=== PATIENT | female | born 1995 | race Caucasian/White ===

== ENCOUNTER 2022-06-05 10:56 | Inpatient (IN) ==
[2022-06-05] MEDS ORDERED: OXYTOCIN 30 UNITS/500 ML BAG IV PRN ×2 (11:23)
[2022-06-05] MEDS ORDERED: LIDOCAINE 1% LOCAL 20 ML VIAL INFIL PRN (11:23)
--- NOTE | 2022-06-05 11:43 | History & Physical Report ---
Date of Service June 05, 2022 Assessment & Plan (1) Supervision of normal intrauterine in primigravida: Plan: - Plan for induction of labor for post dates with Pitocin; epidural as desired (2) Post-dates : Admission and Anticipated Discharge Date Admission Date: June 05, 2022 History of Present Illness Primary Care Provider: NO PCP Neva is a 26 y/o female currently at 40 2/7 WGA with an MIRIAM 06/03/2022 as determined by Ultrasound who is here for induction. Had a Rodriguez bulb placed last evening which came out prior to her leaving the hospital. irregular contractions; + movement; no fluid loss; no bloody show External FHT and external uterine monitors used; Category 1 tracing; moderate FHT variability. Had regular appointments with OB. OB Labs: Blood Type A Negative 10/19/21 Antibody Screen NEGATIVE 03/15/22 Hemoglobin 11.2 g/dl (12.0-16.0) L 03/15/22 Hematocrit 33.9 % (34.1-44.9) L 03/15/22 Mean Corpuscular Volume 80.2 fL (80-100) 10/19/21 Platelet Count 345 K/uL (130-400) 10/19/21 Rubella IgG Antibody Immune (Immune) 10/19/21 Rapid Plasma Reagin Nonreactive (Nonreactive) 10/19/21 Hepatitis B Surface Antigen. NON-REACTIVE (NON-REACTIVE) 10/19/21 Hepatitis C Antibody (EIA) NON-REACTIVE (NON-REACTIVE) 10/19/21 HIV (1&2) Ag and Ab Confirmation NON-REACTIVE (NON-REACTIVE) 10/19/21 Glucose 1 Hour 50 gm Load 114 mg/dl (70-130) 03/15/22 OB Optional Labs: Chlamydia trachomatis RNA NOT DETECTED (NOT DETECTED) 10/19/21 Neisseria gonorrhoeae RNA NOT DETECTED (NOT DETECTED) 10/19/21 declines afp--akh low risk panorama +CF carrier--fob negative sma neg GBS- Allergies Allergy/AdvReac Type Severity Reaction Status Date / Time No Known Allergies Allergy Verified 06/04/22 19:25 Home Medications Medication Instructions Recorded Confirmed Type prenat.vits,hitesh,cgl-kfpz-ycocv 1 tab PO DAILY 04/16/21 06/05/22 History Patient History Medical History Chicken pox Encounter for supervision of normal intrauterine in primigravida, antepartum Surgical History [place] teeth extracted Family History Grandfather Diabetes Mother Diabetes Hypertension Father Heart disease Denies family history of Ovarian cancer Breast cancer Colorectal cancer Uterine cancer Stroke Social History Smoking Status: Never smoker Hx Alcohol Use: No Hx Substance Use: No Preferred Language: Colombian Communication Ability: Effective Hearing Ability: Normal Plumber Apprentice Required: No Beliefs That Will Affect Care: None marital status: marital status details: Elton Winston (27) [phone] Current Living Situation: Spouse Current Living Situation Comment: lives with spouse and 3 dogs, 1 cat, spouse to change litter. current occupational status: employed current occupation: [employer] Other Information That Helps Us Care for You: No Feels Safe at Home: Yes Safety Concerns: Feels Safe At This Time Gender Identity: Female Assistive Devices: Contacts OB History LMP: 08/22/21 : 2 Full term: 0 Premature: 0 Total Number of Induced Abortions: 0 Total Number of Spontaneous Abortions: 1 Ectopics: 0 Multiple births: 0 Number of Living Children: 0 Review of Systems Denies fever, chills, sweats Denies shortness of breath, difficulty breathing, chest pain, palpitations, chest pressure. Denies breast pain. Denies dysuria. Denies headache or changes in vision. Physical Exam Physical Exam: General: Alert, oriented. No acute distress. Cardiac: Regular rate and rhythm, no murmurs/rubs/gallops. Respiratory: Clear to auscultation bilaterally a/p, no wheezes/rales/rhonchi. No increased work of breathing. Symmetrical chest rise. No respiratory distress. Abdomen: Gravid Pelvic: Dilation 2 cm; Effacement 50% ; Station -[address] Mauro Lower Extremities: No lower extremity edema or swelling. No deep calf pain. Results & Data ([facility]) Vital Signs (Past 12 Hours) Vital Signs Temp Pulse Resp BP 02/08/23 11:06 36.8 C 86 20 133/86 Resident Activity Tracking Resident Involvement: Resident Care Provided Care Provided: OB Delivery
[2022-06-05] MEDS: LACTATED RINGER'S 1,000 ML IV PRN ×3 (11:49→18:55)
[2022-06-05 12:02] LABS: Hematocrit (blood only) 33.3 % (37.0-47.0); Hemoglobin 10.9 g/dl (12.0-16.0); Mean Corpuscular Hemoglobin 25.1 pg (25.0-34.0); Mean Corpuscular Hgb Conc 32.7 g/dL (32.0-36.0); Mean Corpuscular Volume 76.7 fL (80.0-100.0); Mean Platelet Volume 10.5 fL (9.4-12.4); Platelet Count 258 K/uL (130-400); Red Blood Count 4.34 M/uL (4.20-5.40); White Blood Count 9.66 K/ul (4.8-10.8)
[2022-06-05] MEDS ORDERED: ePHEDrine sulfate 50 MG/ML AMP ONE (17:27)
[2022-06-05] MEDS ORDERED: BUPIVACAINE 0.25% 30 ML VIAL ONE (17:28)
[2022-06-05] MEDS ORDERED: LIDOCAINE 2%/EPINEPHRINE 1:200,000 20 ML SDV ONE (17:28)
[2022-06-05] MEDS ORDERED: fentaNYL citrate 100 MCG/2 ML VIAL ONE (17:28)
[2022-06-05] MEDS ORDERED: SODIUM CHLORIDE 0.9% INJ 10 ML VIAL ONE (17:28)
[2022-06-05] MEDS ORDERED: fentaNYL 2MCG/ML ROPIVACAINE 1.25MG/ML 100 ML BAG EPI ONE (17:29)
[2022-06-05] MEDS ORDERED: PROMETHAZINE HCL 6.25 MG in SODIUM CHLORIDE 0.9% 50 ML IV PRN (18:05)
[2022-06-05] MEDS ORDERED: ePHEDrine sulfate 50 MG/ML AMP IV PRN (18:05)
[2022-06-05] MEDS ORDERED: ONDANSETRON INJ 2 MG/ML 2 ML VIAL IV PRN (18:05)
[2022-06-05] MEDS ORDERED: diphenhydrAMINE 50 MG/ML VIAL IV PRN (18:05)
[2022-06-05] MEDS ORDERED: NALBUPHINE HCL INJ 10 MG/ML AMP IV PRN (18:05)
[2022-06-05] MEDS ORDERED: NALOXONE HCL 1 MG in SODIUM CHLORIDE 0.9% 1000ML 1,000 ML IV PRN (18:05)
[2022-06-05] MEDS ORDERED: NALOXONE HCL 0.4 MG/1 ML VIAL/CARP IV PRN (18:05)
--- NOTE | 2022-06-05 18:30 | Anesthesiology Consultation ---
Date of Service June 05, 2022 Assessment & Plan Chart Review Chart Review: Patient NOT seen in Pre Admission Testing and Acceptable Risk for Labor Epidural Consults Requested none ASA ASA2 Proposed Anesthesia Anesthesia Type: Labor Epidural Risk / Benefits Reviewed With: PT / POA / Parent / Guardian, Accepts Plan and Informed Consent Obtained History Height/Weight Height: 5 ft 6 in Weight: 105.143 kg Allergies Allergy/AdvReac Type Severity Reaction Status Date / Time No Known Allergies Allergy Verified 06/04/22 19:25 Medications Home Medications Medication Instructions Recorded Confirmed Last Taken prenat.vits,hitesh,uky-eroo-uykns 1 tab PO DAILY 04/16/21 06/05/22 06/04/22 Active Medications Generic Name Dose Route Start Last Admin Trade Name Freq PRN Reason Stop Dose Admin Oxytocin 30 units in 500 mls @ 13 mls/hr 06/05/22 11:23 06/05/22 16:45 Pitocin IV 06/07/22 11:22 0.78 units/hr .Q24H PRN 13 mls/hr Labor Induction/Augmentation Titration Protocol 0.78 UNITS/HR Lactated Ringer's 1,000 mls @ 125 mls/hr 06/05/22 11:23 06/05/22 17:35 Lr IV 06/07/22 11:22 999 mls/hr .Q8H PRN Administration L&D Protocol Protocol Past Medical History Medical History Chicken pox Encounter for supervision of normal intrauterine in primigravida, antepartum Exercise / Class Metabolic Activity II 4-5 Yardwork/Stairs/Walk up hill Past Family History Family History Grandfather Diabetes Mother Diabetes Hypertension Father Heart disease Denies family history of Ovarian cancer Breast cancer Colorectal cancer Uterine cancer Stroke Past Surgical History Surgical History [place] teeth extracted Past Anesthesia History No Hx of Anesthesia Complications and No Family Hx of Anesthesia Complications History of PONV No Hx of PONV and No Hx of Motion Sickness Social History Smoking Status: Never smoker Hx Alcohol Use: No Hx Substance Use: No substance use type: does not use Physical Exam Vital Signs Last Vital Signs Temp 36.9 C 06/05/22 17:54 Pulse 89 06/05/22 18:28 Resp 20 06/05/22 17:54 BP 139/80 06/05/22 18:28 Pulse Ox 100 06/05/22 18:26 ENMT Mouth: no dentition abnormality Thyromental Distance: > or= 3.5 Finger Breadths Mallampati Class: II Neck normal visual inspection Respiratory normal respiratory effort Auscultation: lungs clear to auscultation bilaterally Cardiovascular Rate/Rhythm: regular rate and regular rhythm Psychiatric Orientation: alert Testing Laboratory Results 06/05/22 11:34
[2022-06-06] MEDS: fentaNYL 2MCG/ML ROPIVACAINE 1.25MG/ML 100 ML BAG EPI PRN ×2 (00:36→04:46)
[2022-06-06] MEDS ORDERED: NURSING L&D Epidural Breakthrough Pain Update ONE (02:34)
[2022-06-06] MEDS: LACTATED RINGER'S 1,000 ML IV PRN (02:40)
[2022-06-06] MEDS ORDERED: BUPIVACAINE 0.25% 30 ML VIAL ONE (03:24)
--- NOTE | 2022-06-06 04:01 | Communication Note ---
Date of Service: June 06, 2022 reevaluated for pain with contractions. epidural catheter appears to still be secure. difficult to appreciate if there is any sensory level at all to ice. bolused with 8cc of 0.25% bupivicane which did improve her contraction pain to 5/10 and gave a sensory level to at least T8. Continuous rate increased to 12. Encouraged use of PCEA as needed.
--- NOTE | 2022-06-06 05:08 | Delivery Summary ---
Vaginal Delivery Summary Date of Service June 06, 2022 Vaginal Delivery Summary DIAGNOSES: 1. [place] intrauterine at 40w3d gestation. 2. Induction of Labor. 3. Group B Streptococcus Neg. PROCEDURE: Spontaneous vaginal delivery and repair of second degree laceration. SURGEON: Apryl Mauro MD. EFFICIENCY EXPERT: None. ESTIMATED BLOOD LOSS: 250 mL. COMPLICATIONS: None. PLACENTA: Spontaneous and intact with a 3-vessel cord. DISPOSITION: Stable to labor and delivery. DESCRIPTION: The patient pushed well and brought the head to in DOA position. The infant's head was allowed to deliver with contraction force and no further active pushing, with the perineum protected during this time. There was 1 nuchal cord. The left shoulder was anterior. The shoulders and body delivered without any difficulty, and the infant was placed on the maternal abdomen. It was vigorous and moving all extremities, and making respiratory efforts. The cord was doubly clamped by the MD and then cut by the FOB. The placenta delivered spontaneously and was noted to be intact and with a 3VC. The cervix, vagina and perineum were examined and were found to have a second degree laceration which was repaired in the usual manner with vicryl suture, including a crown stitch to rebuild the perineal body. The fundus was firm and lochia minimal immediately after delivery. [facility] Vaginal Delivery Charge Vaginal Delivery Codes: 08281 global code for the antepartum, delivery, and post-
[2022-06-06] MEDS ORDERED: BENZOCAINE 20% AER SPR 82.5 GM CAN EXT PRN (05:45)
[2022-06-06] MEDS ORDERED: DIPHTHERIA/TETANUS/PERTUSSIS 0.5mL SYR/VIAL (Age 7+yrs) IM ONE (05:45)
[2022-06-06] MEDS ORDERED: HYDROCORTISONE ACETATE 25 MG SUPP PR PRN (05:45)
[2022-06-06] MEDS ORDERED: oxyCODONE/ACETAMINOPHEN 5mg/325mg TAB PO PRN (05:45)
[2022-06-06] MEDS ORDERED: ACETAMINOPHEN 325 MG TAB PO PRN (05:45)
[2022-06-06] MEDS ORDERED: bisacodyL 10 MG SUPP PR PRN (05:45)
--- NOTE | 2022-06-06 07:01 | Anesthesia Procedure Note ---
Date of Service June 06, 2022 Anesthesia Post Epidural Note Vital Signs Vital Signs: Temp Pulse Resp BP Pulse Ox 37.1 C 88 18 129/70 97 06/06/22 05:11 06/06/22 06:51 06/06/22 03:01 06/06/22 06:51 06/06/22 05:31 Pain Intensity Abdomen: Pain Intensity: 0 Notes Mental Status: alert / awake / arousable and participated in evaluation Patient Amnestic to Procedure: No Nausea / Vomiting: adequately controlled Pain: adequately controlled Airway Patency, RR, SpO2: stable & adequate BP & HR: stable & adequate Hydration State: stable & adequate Neuraxial Anesthesia: was administered and sensory block is resolving Anesthetic Complications: no major complications apparent and Pt Satisfied with anesthetic care Epidural: Removed without complications and With tip intact
[2022-06-06] MEDS: IBUPROFEN 600 MG TAB PO PRN ×2 (09:58→21:12)
[2022-06-06] MEDS: PRENATAL VITAMIN 1 TAB PO SCH (09:58)
[2022-06-06] MEDS: DOCUSATE SODIUM 100 MG CAP PO SCH ×2 (09:58→21:12)
--- NOTE | 2022-06-07 06:08 | Obstetrical Progress Note ---
Date of Service <Spring TadeoDO - Last Filed: 06/07/22 06:59> June 07, 2022 Assessment & Plan <Spring Trujillo DO Carlyle - Last Filed: 06/07/22 06:59> (1) Status post vaginal delivery: continue OOB, ambulation, diet as tolerated - Plan for 6 week post f/u <Maia Diaz MD, FACOG - Last Filed: 06/07/22 08:56> (1) Status post vaginal delivery: Subjective <Spring TadeoDO - Last Filed: 06/07/22 06:59> Neva is a 26 y/o female who is now PPD # 1 following vaginal delivery at 40 3/7 weeks. Reports feeling well overall this morning. Mild abdominal cramping,pain well managed on analgesics. Voiding. Tolerating meals overnight and able to ambulate some. Is passing gas and no bowel movements. Some persistent lochia with some improvement this morning. Breast feeding. Review of Systems Denies fever, chills, sweats Denies shortness of breath, difficulty breathing, chest pain, palpitations, chest pressure. Denies breast pain. Denies dysuria. Denies headache or changes in vision. Physical Exam <Spring SCarlos A Tadeo DO - Last Filed: 06/07/22 06:59> General: Alert, oriented. No acute distress. Cardiac: Regular rate and rhythm, no murmurs/rubs/gallops. Respiratory: Clear to auscultation bilaterally a/p, no wheezes/rales/rhonchi. No increased work of breathing. Symmetrical chest rise. No respiratory distress. Abdomen: Soft, nontender, nondistended. Uterus: Uterine fundus firm, palpable 1 cm below umbilicus. Lower Extremities: No lower extremity edema or swelling. No deep calf pain. Results & Data ([facility]) <Spring SCarlos A Tadeo DO - Last Filed: 06/07/22 06:59> Vital Signs (Past 12 Hours) Vital Signs Temp Pulse Resp BP Pulse Ox O2 Del Method 06/07/22 03:18 36.9 C 74 16 101/66 98 Room Air 06/07/22 00:00 37.0 C 81 16 121/78 98 Room Air 06/06/22 19:30 36.9 C 98 H 16 116/74 98 Room Air <Maia Daiz MD, FACOG - Last Filed: 06/07/22 08:56> Co-Signing Physician Notes Resident Physician Supervision Note: I interviewed and examined the patient. Discussed with Dr. Tadeo and agree with findings and plan as documented in the note. Any exceptions or clarifications are listed here: doing well. routine care. Documented By: Maia Diaz MD, FACOG Resident Activity Tracking <Spring Tadeo, - Last Filed: 06/07/22 06:59> Resident Involvement: Resident Care Provided Care Provided: OB Delivery (post )
[2022-06-07 06:17] LABS: Hematocrit (blood only) 29.5 % (37.0-47.0); Hemoglobin 9.5 g/dl (12.0-16.0); Mean Corpuscular Hemoglobin 24.5 pg (25.0-34.0); Mean Corpuscular Hgb Conc 32.2 g/dL (32.0-36.0); Mean Corpuscular Volume 76.2 fL (80.0-100.0); Mean Platelet Volume 10.6 fL (9.4-12.4); Platelet Count 221 K/uL (130-400); RDW Coefficient of Variation 15.2 % (11.5-14.5); RDW Standard Deviation 41.9 fL (36.4-46.3); Red Blood Count 3.87 M/uL (4.20-5.40); White Blood Count 10.64 K/ul (4.8-10.8)
[2022-06-07] MEDS: DOCUSATE SODIUM 100 MG CAP PO SCH ×2 (08:36→20:31)
[2022-06-07] MEDS: PRENATAL VITAMIN 1 TAB PO SCH (08:36)
[2022-06-07] MEDS: IBUPROFEN 600 MG TAB PO PRN (08:38)
[2022-06-07] MEDS ORDERED: bisacodyL 5 MG TABEC PO SCH (20:00)
--- NOTE | 2022-06-08 05:36 | Obstetrical Progress Note ---
Date of Service <Spring Tadeo DO - Last Filed: 06/08/22 06:49> June 08, 2022 Assessment & Plan <Spring Tadeo DO - Last Filed: 06/08/22 06:49> (1) Status post vaginal delivery: continue OOB, ambulation, diet as tolerated - Plan for 6 week post f/u <Jocelyn Jiang MD - Last Filed: 06/08/22 06:51> (1) Status post vaginal delivery: Subjective <Spring Tadeo DO - Last Filed: 06/08/22 06:49> Neva is a 26 y/o female who is now PPD # 2 following vaginal delivery at 40 3/7 weeks. Reports feeling well overall this morning. Mild abdominal cramping,pain well managed on analgesics. Voiding. Tolerating meals overnight and able to ambulate some. Is passing gas and had a bowel movements. Some persistent lochia with some improvement this morning. Breast feeding. Review of Systems Denies fever, chills, sweats Denies shortness of breath, difficulty breathing, chest pain, palpitations, chest pressure. Denies breast pain. Denies dysuria. Denies headache or changes in vision. Physical Exam <Spring Tadeo DO - Last Filed: 06/08/22 06:49> General: Alert, oriented. No acute distress. Cardiac: Regular rate and rhythm, no murmurs/rubs/gallops. Respiratory: Clear to auscultation bilaterally a/p, no wheezes/rales/rhonchi. No increased work of breathing. Symmetrical chest rise. No respiratory distress. Abdomen: Soft, nontender, nondistended. Uterus: Uterine fundus firm, palpable 2 cm below umbilicus. Lower Extremities: No lower extremity edema or swelling. No deep calf pain. Results & Data ([facility]) <Spring Tadeo DO - Last Filed: 06/08/22 06:49> Vital Signs (Past 12 Hours) Vital Signs Temp Pulse Resp BP Pulse Ox O2 Del Method 06/07/22 20:30 37 C 78 16 127/73 98 Room Air 06/07/22 23:09 36.9 C 78 18 125/72 100 Room Air <Jocelyn Jiang MD - Last Filed: 06/08/22 06:51> Co-Signing Physician Notes Resident Physician Supervision Note: I interviewed and examined the patient. Discussed with Dr. Tadeo and agree with findings and plan as documented in the note. Any exceptions or clarifications are listed here: PP2 s/p , doing well. VSS, exam benign and wnl. Stable for d/c home today Documented By: Jocelyn Jiang MD Resident Activity Tracking <Spring Tadeo DO - Last Filed: 06/08/22 06:49> Resident Involvement: Resident Care Provided Care Provided: OB Delivery (post )
[2022-06-08 07:25] LABS: Hemoglobin 9.3 g/dl (12.0-16.0)
[2022-06-08] MEDS: DOCUSATE SODIUM 100 MG CAP PO SCH (08:02)
[2022-06-08] MEDS: IBUPROFEN 600 MG TAB PO PRN (08:02)
[2022-06-08] MEDS: PRENATAL VITAMIN 1 TAB PO SCH (08:04)
== END 2022-06-08 13:35 | disposition home or self-care (01) | DRG 807 ==
LOC: 4S1 10:56 → 4E2 06-06 09:07

== ENCOUNTER 2024-05-27 07:38 | Inpatient (IN) ==
[2024-05-27] MEDS ORDERED: ACETAMINOPHEN 325 MG TAB PO PRN (08:06)
[2024-05-27] MEDS ORDERED: OXYTOCIN 30 UNITS/NSS 30 UNITS/500 ML BAG IV PRN (08:06)
[2024-05-27] MEDS ORDERED: LIDOCAINE 1% LOCAL 20 ML VIAL INFIL PRN (08:06)
[2024-05-27] MEDS ORDERED: CALCIUM CARBONATE 500 MG CHEWABLE TAB PO PRN ×2 (08:06→22:50)
[2024-05-27 08:57] LABS: Hematocrit (blood only) 33.9 % (37.0-47.0); Hemoglobin 11.2 g/dl (12.0-16.0); Mean Corpuscular Hemoglobin 26.4 pg (25.0-34.0); Mean Corpuscular Volume 79.8 fL (80.0-100.0); Mean Platelet Volume 10.7 fL (9.4-12.4); Platelet Count 265 K/uL (130-400); RDW Coefficient of Variation 15.2 % (11.5-14.5); RDW Standard Deviation 44.1 fL (36.4-46.3); Red Blood Count 4.25 M/uL (4.20-5.40); White Blood Count 6.74 K/ul (4.8-10.8)
[2024-05-27] MEDS: OXYTOCIN 30 UNITS/NSS 30 UNITS/500 ML BAG IV PRN (09:43)
[2024-05-27] MEDS: SODIUM CHLORIDE 0.9% 1,000 ML IV SCH (09:43)
[2024-05-27] MEDS: PENICILLIN GK 6 MU in SODIUM CHLORIDE 0.9% 250 ML IV STA (09:46)
--- NOTE | 2024-05-27 10:41 | History & Physical Report ---
Date of Service May 27, 2024 Assessment & Plan (1) Encounter for supervision of normal in multigravida: Plan: Admit to L&D. EFM/toco. Labs. PCN for GBS prophylaxis. Pitocin. OK for epidural. Admission and Anticipated Discharge Date Admission Date: May 27, 2024 History of Present Illness Chief Complaint: IOL Primary Care Provider: STELLA PCP 28yo @ 40 09/01, IOL for postdates. and Delivery Plans Need for Rhogam d/t Rh negative mother *Rhogam given 03/04/24 - SP Patient CF carrier-FOB negative Obesity (BMI between 35-39 @ beginning of ) *Growth US @ 32 wks--efw 64% *Weekly NSTs @ 36wks GBS + in urine * Treat in labor IOL 05/27/24 Allergies Allergy/AdvReac Type Severity Reaction Status Date / Time No Known Allergies Allergy Verified 05/26/24 14:43 Home Medications Medication Instructions Recorded Confirmed Type 21-iron fu-folic acid 1 tab PO 1XD 10/08/23 05/27/24 History [ Complete] Patient History Medical History Chicken pox Surgical History Status post vaginal delivery [place] teeth extracted Family History Grandfather Diabetes Mother Diabetes Hypertension Father Heart disease Denies family history of Ovarian cancer Breast cancer Colorectal cancer Uterine cancer Stroke Social History Smoking Status: Never smoker Do You Dip or Chew Tobacco: No; Hx Alcohol Use: No Hx Substance Use: No Preferred Language: French Communication Ability: Effective Hearing Ability: Normal Salvager Required: No Beliefs That Will Affect Care: None marital status: marital status details: Elton Winston (29) [phone] Current Living Situation: Spouse and Family Current Living Situation Comment: lives with spouse, child and 2 dogs, 1 cat, spouse to change litter. current occupational status: employed current occupation: [employer] Other Information That Helps Us Care for You: No Feels Safe at Home: Yes Safety Concerns: Feels Safe At This Time Diet: regular Gender Identity: Female Assistive Devices: None Review of Systems All systems reviewed & are unremarkable except as noted in HPI & below Physical Exam Physical Exam: FHT Cat 1 [place] none SVE 2-3cm/50/-2, soft/mid Constitutional: WD/WN, vitals as above Respiratory: normal respiratory effort, lungs clear to auscultation no respiratory distress Cardiovascular: Rate/Rhythm: regular rate and regular rhythm Gastrointestinal (Abdomen): Inspection/Auscultation: abdomen normal to inspection Percussion/Palpation: abdomen soft; abdomen nontender Gravid. No s/s chorio or abruption. Skin: no rashes, warm and dry Psychiatric: A+Ox3, euthymic affect Results & Data Vital Signs (Past 12 Hours) Vital Signs Temp Pulse Resp BP 05/27/24 09:45 73 122/78 05/27/24 07:53 86 137/92 05/27/24 07:48 16 05/27/24 07:48 37.0 C 16 Code Status & VTE Plan VTE Prophylaxis Plan VTE Prophylaxis will be ordered: No Coding Level of Care Code None Diagnoses Encounter for supervision of normal in multigravida Z34.80
[2024-05-27] MEDS: PENICILLIN GK 3 MU in DEXTROSE 5% 100 ML IV PRN (13:59)
--- NOTE | 2024-05-27 18:10 | Anesthesiology Consultation ---
Date of Service May 27, 2024 Assessment & Plan (1) Encounter for pre-operative examination: Chart Review Chart Review: Acceptable Risk for Labor Epidural History Height/Weight Height: 5 ft 7 in Weight: 104.326 kg Allergies Allergy/AdvReac Type Severity Reaction Status Date / Time No Known Allergies Allergy Verified 05/26/24 14:43 Medications Home Medications Medication Instructions Recorded Confirmed Last Taken 21-iron fu-folic acid 1 tab PO 1XD 10/08/23 05/27/24 05/26/24 12:00 [ Complete] Active Medications Generic Name Dose Route Start Last Admin Trade Name Freq PRN Reason Stop Dose Admin Oxytocin 30 units in 500 mls @ 14 mls/hr 05/27/24 08:06 05/27/24 17:05 Pitocin 30 Units/Nss IV 05/29/24 08:05 0.84 units/hr .Q24H PRN 14 mls/hr Labor Induction/Augmentation Titration Protocol 0.84 UNITS/HR Penicillin G Potassium 3 mu/ 106 mls @ 100 mls/hr 05/27/24 12:10 05/27/24 17:56 Dextrose IV 06/06/24 12:09 100 mls/hr Q4H PRN Administration GBS(+) Until Delivery Sodium Chloride 1,000 mls @ 50 mls/hr 05/27/24 09:45 05/27/24 09:43 Nss IV 05/28/24 09:44 50 mls/hr .Q20H RADHA Administration Past Medical History Medical History Chicken pox Past Family History Family History Grandfather Diabetes Mother Diabetes Hypertension Father Heart disease Denies family history of Ovarian cancer Breast cancer Colorectal cancer Uterine cancer Stroke Past Surgical History Surgical History Status post vaginal delivery [place] teeth extracted Social History Smoking Status: Never smoker Do You Dip or Chew Tobacco: No Hx Alcohol Use: No Hx Substance Use: No substance use type: does not use Physical Exam Vital Signs Last Vital Signs Temp 36.8 C 05/27/24 16:10 Pulse 67 05/27/24 18:04 Resp 18 05/27/24 16:10 BP 136/77 05/27/24 17:46 Pulse Ox 100 05/27/24 18:04 Testing Laboratory Results 05/27/24 08:26
[2024-05-27] MEDS: fentANYL 2 MCG/ML BUPIVacaine 0.125%-NSS 100ML BAG ONE (18:41)
[2024-05-27] MEDS: LIDOCAINE 2%/EPINEPHRINE 1:200,000 20 ML PF ONE (18:42)
[2024-05-27] MEDS ORDERED: ePHEDrine sulfate 50 MG/ML AMP IV PRN ×2 (18:42→22:13)
[2024-05-27] MEDS ORDERED: NALOXONE HCL 1 MG in SODIUM CHLORIDE 0.9% 1,000 ML IV PRN ×2 (18:42→22:13)
[2024-05-27] MEDS ORDERED: ROPIVACAINE 0.5% PF 5 MG/ML 20 ML VIAL EPI PRN (18:42)
[2024-05-27] MEDS ORDERED: ONDANSETRON INJ 2 MG/ML 2 ML VIAL IV PRN ×2 (18:42→22:13)
[2024-05-27] MEDS ORDERED: fentaNYL citrate PF 100 MCG/2 ML VIAL EPI PRN (18:42)
[2024-05-27] MEDS ORDERED: fentANYL 2 MCG/ML BUPIVacaine 0.125%-NSS 100ML BAG EPI PRN (18:42)
[2024-05-27] MEDS ORDERED: BUPIVACAINE 0.25% PF 30 ML VIAL EPI PRN (18:42)
[2024-05-27] MEDS ORDERED: NALOXONE HCL 0.4 MG/1 ML VIAL/CARP IV PRN ×2 (18:42→22:13)
[2024-05-27] MEDS ORDERED: SODIUM CHLORIDE 0.9% PF INJ 10 ML VIAL EPI PRN (18:42)
[2024-05-27] MEDS: BUPIVACAINE 0.25% PF 30 ML VIAL ONE (18:42)
[2024-05-27] MEDS ORDERED: LIDOCAINE 2% MPF LOCAL 5 ML VIAL EPI PRN (18:42)
[2024-05-27] MEDS: fentaNYL citrate PF 100 MCG/2 ML VIAL ONE (18:42)
[2024-05-27] MEDS: SODIUM CHLORIDE 0.9% PF INJ 10 ML VIAL ONE (18:43)
[2024-05-27] MEDS: ePHEDrine sulfate 50 MG/ML AMP ONE (19:07)
[2024-05-27] MEDS: LIDOCAINE 2%/EPINEPHRINE 1:200,000 20 ML PF EPI STA (19:07)
[2024-05-27] MEDS: BUPIVACAINE 0.25% PF 30 ML VIAL EPI STA (19:07)
[2024-05-27] MEDS: fentaNYL citrate PF 100 MCG/2 ML VIAL EPI STA (19:07)
[2024-05-27] MEDS: SODIUM CHLORIDE 0.9% PF INJ 10 ML VIAL EPI STA (19:08)
--- NOTE | 2024-05-27 21:21 | Labor Progress Brief Note ---
Date of Service May 27, 2024 Subjective Comfortable. FHT Cat 1 [place] Q 2 SVE: 7/80/-1. Face presentation, mentum posterior. Will reposition, recheck in 1 hour. Discussed that if no rotation, may need to deliver by section. Assessment & Plan Admission and Anticipated Discharge Date Admission Date: May 27, 2024 Results & Data Vital Signs (Past 12 Hours) Vital Signs Temp Pulse Resp BP Pulse Ox 05/27/24 21:14 67 100 05/27/24 21:09 73 100 05/27/24 21:07 67 120/60 05/27/24 21:04 65 100 05/27/24 20:59 83 100 05/27/24 20:54 67 100 05/27/24 20:52 62 151/70 H 89 L 05/27/24 20:49 58 L 99 05/27/24 20:44 60 100 05/27/24 20:39 59 L 100 05/27/24 20:36 66 139/82 05/27/24 20:34 59 L 100 05/27/24 20:29 63 100 05/27/24 20:28 64 134/81 05/27/24 20:24 65 100 05/27/24 20:21 82 142/102 H 05/27/24 20:19 71 99 05/27/24 20:14 64 100 05/27/24 20:09 63 100 05/27/24 20:07 59 L 143/77 H 05/27/24 20:04 60 100 05/27/24 20:01 18 05/27/24 20:01 18 05/27/24 19:59 55 L 99 05/27/24 19:54 61 100 05/27/24 19:51 57 L 139/79 05/27/24 19:49 60 99 05/27/24 19:44 59 L 100 05/27/24 19:39 50 L 100 05/27/24 19:34 54 L 99 05/27/24 19:31 18 05/27/24 19:31 18 05/27/24 19:29 56 L 99 05/27/24 19:24 54 L 98 05/27/24 19:20 54 L 18 134/81 05/27/24 19:19 60 98 05/27/24 19:15 18 05/27/24 19:15 18 05/27/24 19:14 56 L 100 05/27/24 19:10 18 05/27/24 19:10 18 05/27/24 19:09 57 L 100 05/27/24 19:06 36.7 C 55 L 18 132/72 05/27/24 19:05 18 05/27/24 19:05 18 05/27/24 19:04 62 100 05/27/24 18:59 59 L 99 05/27/24 18:54 72 99 05/27/24 18:50 36.7 C 65 121/64 05/27/24 18:49 69 100 05/27/24 18:48 72 117/63 05/27/24 18:46 67 118/65 05/27/24 18:44 70 118/63 100 05/27/24 18:42 65 117/63 05/27/24 18:40 62 116/60 05/27/24 18:39 66 98 05/27/24 18:38 63 120/56 L 05/27/24 18:34 65 98 05/27/24 18:29 62 99 05/27/24 18:24 73 100 05/27/24 18:19 69 100 05/27/24 18:14 84 100 05/27/24 18:09 67 100 05/27/24 18:04 67 100 05/27/24 17:59 68 98 05/27/24 17:54 68 99 05/27/24 17:49 70 100 05/27/24 17:46 59 L 136/77 05/27/24 17:44 74 100 05/27/24 17:39 74 99 05/27/24 17:34 62 99 05/27/24 17:29 61 100 05/27/24 17:24 69 100 05/27/24 17:19 72 99 05/27/24 17:14 61 100 05/27/24 17:09 74 99 05/27/24 17:04 68 99 05/27/24 17:01 71 94 05/27/24 16:59 66 98 05/27/24 16:54 65 99 05/27/24 16:49 66 98 05/27/24 16:45 67 134/82 05/27/24 16:44 66 98 05/27/24 16:39 82 99 05/27/24 16:34 74 100 05/27/24 16:29 62 98 05/27/24 16:24 67 98 05/27/24 16:19 64 99 05/27/24 16:14 68 99 05/27/24 16:10 18 05/27/24 16:10 36.8 C 18 05/27/24 16:09 60 98 05/27/24 16:04 71 99 05/27/24 15:59 61 99 05/27/24 15:54 56 L 99 05/27/24 15:49 63 100 05/27/24 15:40 61 100 05/27/24 15:35 65 100 05/27/24 15:30 78 98 05/27/24 15:25 62 99 05/27/24 15:20 67 99 05/27/24 15:15 70 100 05/27/24 15:10 68 98 05/27/24 15:05 61 98 05/27/24 15:00 61 99 05/27/24 14:55 68 99 05/27/24 14:50 63 98 05/27/24 14:45 68 98 05/27/24 14:40 63 98 05/27/24 14:35 62 99 05/27/24 14:30 76 99 05/27/24 14:25 62 99 05/27/24 14:20 60 99 05/27/24 14:15 64 99 05/27/24 13:45 66 123/76 05/27/24 12:45 58 L 119/73 05/27/24 11:45 64 129/79 05/27/24 11:31 16 05/27/24 11:31 36.9 C 16 05/27/24 10:45 64 129/76 05/27/24 09:45 73 122/78 Coding Level of Care Code None
[2024-05-27] MEDS ORDERED: SUCCINYLCHOLINE CHLORIDE 20 MG/ML 10 ML VIAL IV ONE (21:49)
[2024-05-27] MEDS ORDERED: PROPOFOL IV EMULSION 10 MG/ML 20 ML VIAL IV ONE ×2 (21:49→22:00)
[2024-05-27] MEDS ORDERED: LIDOCAINE 2%/EPINEPHRINE 1:200,000 20 ML PF ONE (21:51)
[2024-05-27] MEDS ORDERED: METOCLOPRAMIDE HCL INJ 5 MG/ML 2 ML VIAL ONE (21:55)
[2024-05-27] MEDS ORDERED: ONDANSETRON INJ 2 MG/ML 2 ML VIAL ONE (21:55)
[2024-05-27] MEDS ORDERED: DEXAMETHASONE SOD INJ 4 MG/ML VIAL ONE (21:55)
[2024-05-27] MEDS ORDERED: OXYTOCIN 10 UNITS/ML VIAL ONE ×3 (21:59→22:11)
[2024-05-27] MEDS ORDERED: ceFAZolin 330 MG/ML 1 GM VIAL ONE (22:03)
[2024-05-27] MEDS ORDERED: MoRPHine SULFATE PF 1 MG/ML 10 ML AMP/VIAL ONE (22:10)
[2024-05-27] MEDS ORDERED: MoRPHine SULFATE PF 1 MG/ML 10 ML AMP/VIAL EPI ONE (22:13)
[2024-05-27] MEDS ORDERED: PROMETHAZINE 6.25 MG/50.25 ML BAG IV PRN (22:13)
[2024-05-27] MEDS ORDERED: MoRPHine SULFATE 2 MG/ML CARP IV PRN (22:13)
[2024-05-27] MEDS ORDERED: NALBUPHINE HCL INJ 10 MG/ML AMP IV PRN (22:13)
[2024-05-27] MEDS ORDERED: oxyCODONE HCL IR 5 MG TAB (IMMEDIATE RELEASE) PO PRN (22:13)
[2024-05-27] MEDS ORDERED: NALOXONE HCL 0.08 MG in SYRINGE 1.8 ML IV PRN (22:13)
[2024-05-27] MEDS ORDERED: diphenhydrAMINE 50 MG/ML VIAL IV PRN (22:13)
[2024-05-27] MEDS ORDERED: DC INTRASPINAL MORPHINE SCH (22:15)
[2024-05-27] MEDS ORDERED: NO NARCOTICS OR SEDATIVES SCH (22:15)
--- NOTE | 2024-05-27 22:44 | Operative Report ---
Post Operative Report Pre & Post Diagnosis Operation Date: 05/27/24 21:50 Pre: face presentation mentum posterior, heart tracing decelerations Post: same I identified the patient and participated in the time-out.: Yes Procedure Operation Date: 05/27/24 21:50 Primary Low Transverse Section Surgeon Kelly Tafoya, It Audit Manager Daron Kemp MD Quantitative Blood Loss (QBL) 667 Findings Consistent with Post-Op Diagnosis Viable Male Apgars 8/9. Weight pending, please see nursery records. Specimens placenta, cord blood, cord gas Drains flood clear yellow Anesthesia Type Labor Epidural Complications none Disposition Accompanied Patient To Recovery: Yes Disposition: L&D Indications 28yo @ 40 5/7, induction of labor, progressed to 7cm but face presenta tion with mentum posterior - attempted to reposition patient to allow face to rotate, but then began to have FHR decelerations, therefore stat section was called. Patient agreed and we proceeded to OR. Description of Procedure The patient was seen in her labor and delivery room, risks benefits and alternatives to surgery were reviewed quickly and verbal consent obtained d/t emergency. Questions were answered. She was taken to the operating room, spinal anesthesia was administered. She was then prepared and draped in the usual sterile fashion in the supine position with a leftward tilt. Timeout was confirmed. A Pfannenstiel skin incision was made with a scalpel, and carried through to the underlying layer of fascia. Fascia was nicked at midline, and this incision was extended bilaterally. The superior aspect of the fascial incision was grasped with Nellie clamps x2, elevated off the underlying rectus abdominis muscles, and dissected sharply and bluntly. In similar fashion, the inferior aspect of the fascial incision was dissected. The rectus abdominis muscles were , and the peritoneum was entered bluntly digitally. This was extended bilaterally. The bladder flap was taken down carefully using Metzenbaum scissors. Using a new scalpel, a low transverse uterine incision was created. Clear amniotic fluid noted. The infant was delivered from a cephalic presentation. The head delivered, followed by shoulders and body. Spontaneous cry on the field. The cord was doubly clamped and cut, and the infant was handed off to the waiting cell tender helper. A segment was retained for cord gases. Cord blood was obtained. The placenta was delivered spontaneously intact. The uterus was exteriorized, and cleared of all clots and debris. The hysterotomy incision was reapproximated using 0 Vicryl in a running locked stitch. A second layer of the same suture was used to imbricate the incision. Posterior uterus was evaluated and normal. The uterus was returned to the abdomen, and gutters were cleared of clots and debris. Excellent hemostasis was observed. The fascial incision was reapproximated using 0 Vicryl in a running stitch. The subcutaneous tissue was irrigated, and reapproximated using 2-0 plain gut in a running stitch. The skin was reapproximated using 4-0 Vicryl in a running subcuticular stitch. Steri-Strips and a bandage were applied. The patient tolerated the procedure well, and will be taken to the recovery area in stable and good condition. I attest to the content of the Intraoperative Record and any orders documented therein. Any exceptions are noted below. OB Procedure Charges 92313
[2024-05-27] MEDS ORDERED: BENZOCAINE 20% SPRY 85 APPLN/85 GM CAN EXT PRN (22:50)
[2024-05-27] MEDS ORDERED: HYDROCORTISONE ACETATE 25 MG SUPP PR PRN (22:50)
[2024-05-27] MEDS ORDERED: MAGNESIUM HYDROXIDE SUSP 30 ML UDC PO PRN (22:50)
[2024-05-27] MEDS ORDERED: SENNA 8.6 MG TAB PO PRN (22:50)
[2024-05-27] MEDS ORDERED: DIPHTHER/TETAN/PERTUS Vaccine (Tdap, Adol/Adult) 0.5mL IM ONE (22:50)
[2024-05-27] MEDS: OXYTOCIN 20 UNITS/1002ML LR IV ONE (22:50)
[2024-05-27] MEDS ORDERED: SODIUM CHLORIDE 0.9% 1,000 ML IV SCH (23:00)
[2024-05-27 23:07] LABS: Base Excess Cord Venous Blood -6.4 mEq/L (-7.7-1.9); Cord Venous Blood HCO3 20 mmol/L (18.4-26.8); Cord Venous Blood PCO2 43 mmHg (30.4-57.2); Cord Venous Blood PO2 33 mmHg (14.1-43.3); Cord Venous Blood pH 7.28 (7.20-7.44); O2 Saturation Cord Venous Bld 63.2 % (<68)
[2024-05-27 23:08] LABS: Base Excess Cord Arterial Bld -4.4 mEq/L (-9-1.8); CO2 Cord Arterial Blood 45 mmHg (39.1-73.5); HCO3 Cord Arterial Blood 22 mmol/L (19.7-28.5); PO2 Cord Arterial Blood 35 mmHg (4.1-31.7)
[2024-05-27] MEDS: KETOROLAC 30 MG/ML VIAL IV SCH (23:31)
[2024-05-28] MEDS ORDERED: SODIUM CHLORIDE 0.9% 100 ML IV PRN (00:49)
[2024-05-28] MEDS ORDERED: SODIUM CHLORIDE 0.9% 50 ML IV PRN (00:49)
[2024-05-28] MEDS: ACETAMINOPHEN 325 MG TAB PO SCH (04:54)
--- NOTE | 2024-05-28 06:34 | Anesthesiology Progress Note ---
Date of Service May 28, 2024 Anesthesia Post Procedure Vital Signs Vital Signs: Temp Pulse Pulse Resp BP BP Pulse Ox 05/28/24 05:12 18 98 05/28/24 04:30 20 97 05/28/24 03:42 37 C 73 18 145/75 H 97 05/28/24 03:30 16 97 05/28/24 02:30 16 98 05/28/24 01:30 18 96 05/28/24 01:16 60 129/71 05/28/24 01:14 70 97 05/28/24 01:09 70 96 05/28/24 01:04 63 96 05/28/24 00:59 67 97 05/28/24 00:54 77 97 05/28/24 00:49 72 97 05/28/24 00:46 71 137/65 05/28/24 00:45 18 05/28/24 00:44 72 97 05/28/24 00:39 58 L 96 05/28/24 00:34 59 L 96 05/28/24 00:29 54 L 97 05/28/24 00:24 59 L 98 05/28/24 00:19 68 99 05/28/24 00:16 83 134/83 05/28/24 00:15 18 05/28/24 00:14 62 99 05/28/24 00:09 76 99 05/28/24 00:06 69 125/72 05/28/24 00:04 65 98 05/28/24 00:00 18 97 05/28/24 00:00 37.3 C 77 18 137/65 97 05/27/24 23:59 70 98 05/27/24 23:56 63 125/67 05/27/24 23:54 67 99 05/27/24 23:49 73 98 05/27/24 23:46 68 110/62 05/27/24 23:45 18 05/27/24 23:44 77 98 05/27/24 23:39 66 99 05/27/24 23:36 64 109/61 05/27/24 23:35 18 05/27/24 23:34 68 98 05/27/24 23:29 70 97 05/27/24 23:26 64 107/57 L 05/27/24 23:25 18 05/27/24 23:24 69 97 05/27/24 23:19 71 96 05/27/24 23:16 70 112/55 L 05/27/24 23:15 18 05/27/24 23:14 70 97 05/27/24 23:09 73 96 05/27/24 23:06 76 91/53 L 05/27/24 23:05 18 05/27/24 23:04 70 97 05/27/24 23:01 71 90/53 L 05/27/24 22:59 72 97 05/27/24 22:55 18 05/27/24 22:54 67 96 05/27/24 22:49 70 97 05/27/24 22:46 75 107/51 L 05/27/24 22:45 36.7 C 18 05/27/24 22:44 76 97 05/27/24 21:44 89 100 05/27/24 21:39 93 H 100 05/27/24 21:37 108 H 129/91 05/27/24 21:34 68 100 05/27/24 21:29 67 100 05/27/24 21:24 70 99 05/27/24 21:21 74 111/56 L 05/27/24 21:19 71 100 05/27/24 21:14 67 100 05/27/24 21:09 73 100 05/27/24 21:07 67 120/60 05/27/24 21:04 65 100 05/27/24 20:59 83 100 05/27/24 20:54 67 100 05/27/24 20:52 62 151/70 H 89 L 05/27/24 20:49 58 L 99 05/27/24 20:44 60 100 05/27/24 20:39 59 L 100 05/27/24 20:36 66 139/82 05/27/24 20:34 59 L 100 05/27/24 20:29 63 100 05/27/24 20:28 64 134/81 05/27/24 20:24 65 100 05/27/24 20:21 82 142/102 H 05/27/24 20:19 71 99 05/27/24 20:14 64 100 05/27/24 20:09 63 100 05/27/24 20:07 59 L 143/77 H 05/27/24 20:04 60 100 05/27/24 20:01 18 05/27/24 20:01 18 05/27/24 19:59 55 L 99 05/27/24 19:54 61 100 05/27/24 19:51 57 L 139/79 05/27/24 19:49 60 99 05/27/24 19:44 59 L 100 05/27/24 19:39 50 L 100 05/27/24 19:34 54 L 99 05/27/24 19:31 18 05/27/24 19:31 18 05/27/24 19:29 56 L 99 05/27/24 19:24 54 L 98 05/27/24 19:20 54 L 18 134/81 05/27/24 19:19 60 98 05/27/24 19:15 18 05/27/24 19:15 18 05/27/24 19:14 56 L 100 05/27/24 19:10 18 05/27/24 19:10 18 05/27/24 19:09 57 L 100 05/27/24 19:06 36.7 C 55 L 18 132/72 05/27/24 19:05 18 05/27/24 19:05 18 05/27/24 19:04 62 100 05/27/24 18:59 59 L 99 05/27/24 18:54 72 99 05/27/24 18:50 36.7 C 65 121/64 05/27/24 18:49 69 100 05/27/24 18:48 72 117/63 05/27/24 18:46 67 118/65 05/27/24 18:44 70 118/63 100 05/27/24 18:42 65 117/63 05/27/24 18:40 62 116/60 05/27/24 18:39 66 98 05/27/24 18:38 63 120/56 L 05/27/24 18:34 65 98 05/27/24 18:29 62 99 05/27/24 18:24 73 100 05/27/24 18:19 69 100 05/27/24 18:14 84 100 05/27/24 18:09 67 100 05/27/24 18:04 67 100 05/27/24 17:59 68 98 05/27/24 17:54 68 99 05/27/24 17:49 70 100 05/27/24 17:46 59 L 136/77 05/27/24 17:44 74 100 05/27/24 17:39 74 99 05/27/24 17:34 62 99 05/27/24 17:29 61 100 05/27/24 17:24 69 100 05/27/24 17:19 72 99 05/27/24 17:14 61 100 05/27/24 17:09 74 99 05/27/24 17:04 68 99 05/27/24 17:01 71 94 05/27/24 16:59 66 98 05/27/24 16:54 65 99 05/27/24 16:49 66 98 05/27/24 16:45 67 134/82 05/27/24 16:44 66 98 05/27/24 16:39 82 99 05/27/24 16:34 74 100 05/27/24 16:29 62 98 05/27/24 16:24 67 98 05/27/24 16:19 64 99 05/27/24 16:14 68 99 05/27/24 16:10 18 05/27/24 16:10 36.8 C 18 05/27/24 16:09 60 98 05/27/24 16:04 71 99 05/27/24 15:59 61 99 05/27/24 15:54 56 L 99 05/27/24 15:49 63 100 05/27/24 15:40 61 100 05/27/24 15:35 65 100 05/27/24 15:30 78 98 05/27/24 15:25 62 99 05/27/24 15:20 67 99 05/27/24 15:15 70 100 05/27/24 15:10 68 98 05/27/24 15:05 61 98 05/27/24 15:00 61 99 05/27/24 14:55 68 99 05/27/24 14:50 63 98 05/27/24 14:45 68 98 05/27/24 14:40 63 98 05/27/24 14:35 62 99 05/27/24 14:30 76 99 05/27/24 14:25 62 99 05/27/24 14:20 60 99 05/27/24 14:15 64 99 05/27/24 13:45 66 123/76 05/27/24 12:45 58 L 119/73 05/27/24 11:45 64 129/79 05/27/24 11:31 16 05/27/24 11:31 36.9 C 16 05/27/24 10:45 64 129/76 05/27/24 09:45 73 122/78 05/27/24 07:53 86 137/92 05/27/24 07:48 16 05/27/24 07:48 37.0 C 16 O2 Del Method 05/28/24 05:12 05/28/24 04:30 05/28/24 03:42 Room Air 05/28/24 03:30 05/28/24 02:30 05/28/24 01:30 05/28/24 01:16 05/28/24 01:14 05/28/24 01:09 05/28/24 01:04 05/28/24 00:59 05/28/24 00:54 05/28/24 00:49 05/28/24 00:46 05/28/24 00:45 05/28/24 00:44 05/28/24 00:39 05/28/24 00:34 05/28/24 00:29 05/28/24 00:24 05/28/24 00:19 05/28/24 00:16 05/28/24 00:15 05/28/24 00:14 05/28/24 00:09 05/28/24 00:06 05/28/24 00:04 05/28/24 00:00 05/28/24 00:00 Room Air 05/27/24 23:59 05/27/24 23:56 05/27/24 23:54 05/27/24 23:49 05/27/24 23:46 05/27/24 23:45 05/27/24 23:44 05/27/24 23:39 05/27/24 23:36 05/27/24 23:35 05/27/24 23:34 05/27/24 23:29 05/27/24 23:26 05/27/24 23:25 05/27/24 23:24 05/27/24 23:19 05/27/24 23:16 05/27/24 23:15 05/27/24 23:14 05/27/24 23:09 05/27/24 23:06 05/27/24 23:05 05/27/24 23:04 05/27/24 23:01 05/27/24 22:59 05/27/24 22:55 05/27/24 22:54 05/27/24 22:49 05/27/24 22:46 05/27/24 22:45 05/27/24 22:44 05/27/24 21:44 05/27/24 21:39 05/27/24 21:37 05/27/24 21:34 05/27/24 21:29 05/27/24 21:24 05/27/24 21:21 05/27/24 21:19 05/27/24 21:14 05/27/24 21:09 05/27/24 21:07 05/27/24 21:04 05/27/24 20:59 05/27/24 20:54 05/27/24 20:52 05/27/24 20:49 05/27/24 20:44 05/27/24 20:39 05/27/24 20:36 05/27/24 20:34 05/27/24 20:29 05/27/24 20:28 05/27/24 20:24 05/27/24 20:21 05/27/24 20:19 05/27/24 20:14 05/27/24 20:09 05/27/24 20:07 05/27/24 20:04 05/27/24 20:01 05/27/24 20:01 05/27/24 19:59 05/27/24 19:54 05/27/24 19:51 05/27/24 19:49 05/27/24 19:44 05/27/24 19:39 05/27/24 19:34 05/27/24 19:31 05/27/24 19:31 05/27/24 19:29 05/27/24 19:24 05/27/24 19:20 05/27/24 19:19 05/27/24 19:15 05/27/24 19:15 05/27/24 19:14 05/27/24 19:10 05/27/24 19:10 05/27/24 19:09 05/27/24 19:06 05/27/24 19:05 05/27/24 19:05 05/27/24 19:04 05/27/24 18:59 05/27/24 18:54 05/27/24 18:50 05/27/24 18:49 05/27/24 18:48 05/27/24 18:46 05/27/24 18:44 05/27/24 18:42 05/27/24 18:40 05/27/24 18:39 05/27/24 18:38 05/27/24 18:34 05/27/24 18:29 05/27/24 18:24 05/27/24 18:19 05/27/24 18:14 05/27/24 18:09 05/27/24 18:04 05/27/24 17:59 05/27/24 17:54 05/27/24 17:49 05/27/24 17:46 05/27/24 17:44 05/27/24 17:39 05/27/24 17:34 05/27/24 17:29 05/27/24 17:24 05/27/24 17:19 05/27/24 17:14 05/27/24 17:09 05/27/24 17:04 05/27/24 17:01 05/27/24 16:59 05/27/24 16:54 05/27/24 16:49 05/27/24 16:45 05/27/24 16:44 05/27/24 16:39 05/27/24 16:34 05/27/24 16:29 05/27/24 16:24 05/27/24 16:19 05/27/24 16:14 05/27/24 16:10 05/27/24 16:10 05/27/24 16:09 05/27/24 16:04 05/27/24 15:59 05/27/24 15:54 05/27/24 15:49 05/27/24 15:40 05/27/24 15:35 05/27/24 15:30 05/27/24 15:25 05/27/24 15:20 05/27/24 15:15 05/27/24 15:10 05/27/24 15:05 05/27/24 15:00 05/27/24 14:55 05/27/24 14:50 05/27/24 14:45 05/27/24 14:40 05/27/24 14:35 05/27/24 14:30 05/27/24 14:25 05/27/24 14:20 05/27/24 14:15 05/27/24 13:45 05/27/24 12:45 05/27/24 11:45 05/27/24 11:31 05/27/24 11:31 05/27/24 10:45 05/27/24 09:45 05/27/24 07:53 05/27/24 07:48 05/27/24 07:48 Transfer of Care Handoff Completed per policy Notes Mental Status: alert / awake / arousable Patient Amnestic to Procedure: Yes Nausea / Vomiting: adequately controlled Pain: adequately controlled Airway Patency, RR, SpO2: stable & adequate BP & HR: stable & adequate Hydration State: stable & adequate Neuraxial Anesthesia: was administered and sensory block is resolving Anesthetic Complications: no major complications apparent
[2024-05-28 07:40] LABS: Basophils # (auto) 0.02 K/uL (0.00-0.20); Basophils % (auto) 0.1 %; Hematocrit (blood only) 32.3 % (37.0-47.0); Hemoglobin 10.8 g/dl (12.0-16.0); Immature Granulocytes # (auto) 0.11 K/uL (0.01-0.20); Immature Granulocytes % (auto) 0.7 %; Lymphocytes # (auto) 0.67 K/uL (1.20-3.40); Mean Corpuscular Hemoglobin 26.9 pg (25.0-34.0); Mean Corpuscular Hgb Conc 33.4 g/dL (32.0-36.0); Mean Corpuscular Volume 80.5 fL (80.0-100.0); Mean Platelet Volume 10.7 fL (9.4-12.4); Monocytes # (auto) 1.14 K/uL (0.11-0.59); Monocytes % (auto) 6.9 %; Neutrophils # (auto) 14.61 K/uL (1.40-6.50); Neutrophils % (auto) 88.3 %; Platelet Count 258 K/uL (130-400); RDW Coefficient of Variation 15.2 % (11.5-14.5); RDW Standard Deviation 44.8 fL (36.4-46.3); Red Blood Count 4.01 M/uL (4.20-5.40); White Blood Count 16.55 K/ul (4.8-10.8)
--- NOTE | 2024-05-28 08:08 | Obstetrical Progress Note ---
Date of Service May 28, 2024 Assessment & Plan (1) Encounter for assessment: Plan: Patient is POD 1 s/p pLTCS and doing well - Eating well, voiding well, ambulating well - vitals reviewed and within normal limits - pain well controlled with analgesics - OOB, ambulation, diet progression as tolerated - Blood type: O+, GBS neg, rubella immune - Plan to discharge tomorrow - After discharge, 6 week follow up with OBGYN Admission and Anticipated Discharge Date Admission Date: May 27, 2024 Supervising Physician Co-Signing Physician Notes Resident Physician Supervision Note: I interviewed and examined the patient. Discussed with Dr. Sanchez and agree with findings and plan as documented in the note. Any exceptions or clarifications are listed here: POD1 doing well. Incision bandage is clean/dry. pain controlled. Continue routine postop care. Documented By: Kelly Tafoya, Subjective 28 yo post-operative day 1 s/p pLTCS Ambulation: ambulating normally Voiding: Rodriguez removed at 6am, no voids yet Passing Gas:: Yes Diet Tolerance:: regular diet Lochia:: Small Feeding Type:: breast feeding and bottle feeding Current Pain Level:0/10 Resting comfortably this AM in NAD. Denies VALDOVINOS, CP, SOB, N/V/D, LE pain/swelling. Physical Exam Physical Exam: General: patient resting comfortably, NAD, non-toxic in appearance, answers questions appropriately. Skin: warm, dry, intact HEENT: NC/AT, anicteric sclera, conjunctiva without injection, moist mucus membranes. Heart: +S1/S2, regular, no m/r/g Lungs: equal air entry bilaterally, no rales/rhonchi/wheezes Abd: +BS, soft, NT/ND, uterine fundus firm at umbilicus, caesarean incision clean w/o erythema/edema Ext: warm, no clubbing/cyanosis or edema Neuro: nonfocal, speech intact, no facial droop, moving all extremities. Results & Data Vital Signs (Past 12 Hours) Vital Signs Temp Pulse Pulse Resp BP BP Pulse Ox 05/28/24 06:25 18 99 05/28/24 05:12 18 98 05/28/24 04:30 20 97 05/28/24 03:42 37 C 73 18 145/75 H 97 05/28/24 03:30 16 97 05/28/24 02:30 16 98 05/28/24 01:30 18 96 05/28/24 01:16 60 129/71 05/28/24 01:14 70 97 05/28/24 01:09 70 96 05/28/24 01:04 63 96 05/28/24 00:59 67 97 05/28/24 00:54 77 97 05/28/24 00:49 72 97 05/28/24 00:46 71 137/65 05/28/24 00:45 18 05/28/24 00:44 72 97 05/28/24 00:39 58 L 96 05/28/24 00:34 59 L 96 05/28/24 00:29 54 L 97 05/28/24 00:24 59 L 98 05/28/24 00:19 68 99 05/28/24 00:16 83 134/83 05/28/24 00:15 18 05/28/24 00:14 62 99 05/28/24 00:09 76 99 05/28/24 00:06 69 125/72 05/28/24 00:04 65 98 05/28/24 00:00 18 97 05/28/24 00:00 37.3 C 77 18 137/65 97 05/27/24 23:59 70 98 05/27/24 23:56 63 125/67 05/27/24 23:54 67 99 05/27/24 23:49 73 98 05/27/24 23:46 68 110/62 05/27/24 23:45 18 05/27/24 23:44 77 98 05/27/24 23:39 66 99 05/27/24 23:36 64 109/61 05/27/24 23:35 18 05/27/24 23:34 68 98 05/27/24 23:29 70 97 05/27/24 23:26 64 107/57 L 05/27/24 23:25 18 05/27/24 23:24 69 97 05/27/24 23:19 71 96 05/27/24 23:16 70 112/55 L 05/27/24 23:15 18 05/27/24 23:14 70 97 05/27/24 23:09 73 96 05/27/24 23:06 76 91/53 L 05/27/24 23:05 18 05/27/24 23:04 70 97 05/27/24 23:01 71 90/53 L 05/27/24 22:59 72 97 05/27/24 22:55 18 05/27/24 22:54 67 96 05/27/24 22:49 70 97 05/27/24 22:46 75 107/51 L 05/27/24 22:45 36.7 C 18 05/27/24 22:44 76 97 05/27/24 21:44 89 100 05/27/24 21:39 93 H 100 05/27/24 21:37 108 H 129/91 05/27/24 21:34 68 100 05/27/24 21:29 67 100 05/27/24 21:24 70 99 05/27/24 21:21 74 111/56 L 05/27/24 21:19 71 100 05/27/24 21:14 67 100 05/27/24 21:09 73 100 05/27/24 21:07 67 120/60 05/27/24 21:04 65 100 05/27/24 20:59 83 100 05/27/24 20:54 67 100 05/27/24 20:52 62 151/70 H 89 L 05/27/24 20:49 58 L 99 05/27/24 20:44 60 100 05/27/24 20:39 59 L 100 05/27/24 20:36 66 139/82 05/27/24 20:34 59 L 100 05/27/24 20:29 63 100 05/27/24 20:28 64 134/81 05/27/24 20:24 65 100 05/27/24 20:21 82 142/102 H 05/27/24 20:19 71 99 05/27/24 20:14 64 100 05/27/24 20:09 63 100 O2 Del Method 05/28/24 06:25 05/28/24 05:12 05/28/24 04:30 05/28/24 03:42 Room Air 05/28/24 03:30 05/28/24 02:30 05/28/24 01:30 05/28/24 01:16 05/28/24 01:14 05/28/24 01:09 05/28/24 01:04 05/28/24 00:59 05/28/24 00:54 05/28/24 00:49 05/28/24 00:46 05/28/24 00:45 05/28/24 00:44 05/28/24 00:39 05/28/24 00:34 05/28/24 00:29 05/28/24 00:24 05/28/24 00:19 05/28/24 00:16 05/28/24 00:15 05/28/24 00:14 05/28/24 00:09 05/28/24 00:06 05/28/24 00:04 05/28/24 00:00 05/28/24 00:00 Room Air 05/27/24 23:59 05/27/24 23:56 05/27/24 23:54 05/27/24 23:49 05/27/24 23:46 05/27/24 23:45 05/27/24 23:44 05/27/24 23:39 05/27/24 23:36 05/27/24 23:35 05/27/24 23:34 05/27/24 23:29 05/27/24 23:26 05/27/24 23:25 05/27/24 23:24 05/27/24 23:19 05/27/24 23:16 05/27/24 23:15 05/27/24 23:14 05/27/24 23:09 05/27/24 23:06 05/27/24 23:05 05/27/24 23:04 05/27/24 23:01 05/27/24 22:59 05/27/24 22:55 05/27/24 22:54 05/27/24 22:49 05/27/24 22:46 05/27/24 22:45 05/27/24 22:44 05/27/24 21:44 05/27/24 21:39 05/27/24 21:37 05/27/24 21:34 05/27/24 21:29 05/27/24 21:24 05/27/24 21:21 05/27/24 21:19 05/27/24 21:14 05/27/24 21:09 05/27/24 21:07 05/27/24 21:04 05/27/24 20:59 05/27/24 20:54 05/27/24 20:52 05/27/24 20:49 05/27/24 20:44 05/27/24 20:39 05/27/24 20:36 05/27/24 20:34 05/27/24 20:29 05/27/24 20:28 05/27/24 20:24 05/27/24 20:21 05/27/24 20:19 05/27/24 20:14 05/27/24 20:09 Resident Activity Tracking Resident Involvement: Resident Care Provided Care Provided: OB Delivery
[2024-05-28] MEDS: DOCUSATE SODIUM 100 MG CAP PO SCH (09:02)
[2024-05-28] MEDS: FERROUS SULFATE 325 MG TAB PO SCH (09:02)
[2024-05-28] MEDS: SIMETHICONE 80 MG CHEW PO SCH (09:02)
[2024-05-28] MEDS: PRENATAL VITAMIN 1 TAB PO SCH (09:02)
[2024-05-28] MEDS ORDERED: HYDROmorphone INJ 0.5 MG/0.5 ML SYR IV PRN (16:14)
[2024-05-28] MEDS ORDERED: diphenhydrAMINE Capsule 25 MG CAP PO PRN (16:14)
[2024-05-28] MEDS ORDERED: oxyCODONE HCL IR 5 MG TAB (IMMEDIATE RELEASE) PO PRN (16:14)
[2024-05-28] MEDS ORDERED: ONDANSETRON INJ 2 MG/ML 2 ML VIAL IV PRN (16:14)
[2024-05-28] MEDS ORDERED: PROMETHAZINE 12.5 MG/50.5 ML BAG IV PRN (16:14)
[2024-05-28] MEDS ORDERED: diphenhydrAMINE 50 MG/ML VIAL IV PRN (16:14)
[2024-05-28] MEDS: bisacodyL 5 MG TABEC PO SCH (20:35)
[2024-05-28] MEDS ORDERED: KETOROLAC 30 MG/ML VIAL IV PRN (22:47)
[2024-05-28] MEDS: IBUPROFEN 600 MG TAB PO SCH (23:20)
[2024-05-29 06:41] LABS: Hematocrit (blood only) 28.1 % (37.0-47.0); Hemoglobin 9.1 g/dl (12.0-16.0)
--- NOTE | 2024-05-29 06:49 | Obstetrical Progress Note ---
Date of Service May 29, 2024 Assessment & Plan (1) Encounter for assessment: Plan: Patient is POD 2 s/p pLTCS and doing well - Eating well, voiding well, ambulating well - vitals reviewed and within normal limits - pain well controlled with analgesics - OOB, ambulation, diet progression as tolerated - Blood type: O+, GBS neg, rubella immune - Plan to discharge tomorrow - After discharge, 6 week follow up with OBGYN Admission and Anticipated Discharge Date Admission Date: May 27, 2024 Supervising Physician Co-Signing Physician Notes Resident Physician Supervision Note: I was present with Dr. Sanchez during the history and exam. I discussed the case with the resident and agree with the findings and plan as documented in the note. Any exceptions or clarifications are listed here: stable, routine care. eating, voiding, ambulating. pain well controlled. abd soft ff2 down nt, incision c/d/i with steris ext nt calves pod#2 s/p c/s routine care. rh pos, bottle, ri. hgb pending. Documented By: Aura Kemp MD, FACOG Subjective 28 yo post-operative day 2 s/p pLTCS Ambulation: ambulating normally Voiding: Voiding appropriately Passing Gas:: Yes Diet Tolerance:: regular diet Lochia:: Small Feeding Type:: bottle feeding Current Pain Level:2/10 Resting comfortably this AM in NAD. Denies VALDOVINOS, CP, SOB, N/V/D, LE pain/swelling. Physical Exam Physical Exam: General: patient resting comfortably, NAD, non-toxic in appearance, answers questions appropriately. Skin: warm, dry, intact HEENT: NC/AT, anicteric sclera, conjunctiva without injection, moist mucus membranes. Heart: +S1/S2, regular, no m/r/g Lungs: equal air entry bilaterally, no rales/rhonchi/wheezes Abd: +BS, soft, NT/ND, uterine fundus firm at umbilicus, caesarean incision clean w/o erythema/edema Ext: warm, no clubbing/cyanosis or edema Neuro: nonfocal, speech intact, no facial droop, moving all extremities. Results & Data Vital Signs (Past 12 Hours) Vital Signs Temp Pulse Resp BP O2 Del Method 05/29/24 00:40 36.6 C 68 16 107/69 Room Air 01/31/25 20:15 37.0 C 77 16 115/74 Room Air Resident Activity Tracking Resident Involvement: Resident Care Provided Care Provided: OB Delivery
[2024-05-29] MEDS ORDERED: bisacodyL 10 MG SUPP PR PRN (22:47)
[2024-05-30] MEDS: IBUPROFEN 600 MG TAB PO PRN (07:47)
[2024-05-30 07:48] VITALS: BP 117/74; PULSE 70; RESP 16; TEMP 98.6; O2SAT 99
--- NOTE | 2024-05-30 08:14 | Obstetrical Progress Note ---
Date of Service May 30, 2024 Assessment & Plan (1) Encounter for assessment: Patient is POD3 s/p pLTCS and doing well - Eating well, voiding well, ambulating well - vitals reviewed and within normal limits - pain well controlled with analgesics - OOB, ambulation, diet progression as tolerated - Blood type: O+, GBS neg, rubella immune - Plan to discharge today - After discharge, 6 week follow up with OBGYN Physical Exam Constitutional WD/WN, vitals as above well developed and well nourished Respiratory normal respiratory effort, lungs clear to auscultation normal respiratory effort Cardiovascular RRR, no murmur, no edema Gastrointestinal (Abdomen) normal bowel sounds, soft, nontender, no hepatosplenomegaly Results & Data Vital Signs (Past 12 Hours) Vital Signs Temp Pulse Resp BP Pulse Ox O2 Del Method 05/30/24 07:29 98.6 F 70 16 117/74 99 Room Air 05/29/24 23:29 98.4 F 73 14 111/70 Room Air
[2024-05-30] MEDS: ACETAMINOPHEN 325 MG TAB PO PRN (09:24)
--- NOTE | 2024-06-01 22:19 | Discharge Summary ---
Date of Service Admission for induction and delivery by section Admission HPI Per Admitting Provider 28yo @ 40 09/01, IOL for postdates. and Delivery Plans Need for Rhogam d/t Rh negative mother *Rhogam given 03/04/24 - SP Patient CF carrier-FOB negative Obesity (BMI between 35-39 @ beginning of ) *Growth US @ 32 wks--efw 64% *Weekly NSTs @ 36wks GBS + in urine * Treat in labor IOL 05/27/24 Admission Exam (Per Admitting) Constitutional WD/WN, vitals as above Respiratory normal respiratory effort, lungs clear to auscultation no respiratory distress Cardiovascular Rate/Rhythm: regular rate and regular rhythm Gastrointestinal (Abdomen) Inspection/Auscultation: abdomen normal to inspection Percussion/Palpation: abdomen soft; abdomen nontender Skin no rashes, warm and dry Psychiatric A+Ox3, euthymic affect Discharge Data Consultations 05/27/24 08:07 Consult Anesthesiology Stat Procedures Performed Operation Date: 05/27/24 21:50 Actual Procedures p Primary Section for the of live male child at 2204 - Kelly Tafoya DO Hospital Course (1) Encounter for assessment: Patient is POD3 s/p pLTCS and doing well - Eating well, voiding well, ambulating well - vitals reviewed and within normal limits - pain well controlled with analgesics - OOB, ambulation, diet progression as tolerated - Blood type: O+, GBS neg, rubella immune - Plan to discharge today - After discharge, 6 week follow up with OBGYN Supervising Physician Co-Signing Physician Notes Resident Physician Supervision Note: I was present with Dr. Sanchez during the history and exam. I discussed the case with the resident and agree with the findings and plan as documented in the note. Any exceptions or clarifications are listed here: stable, routine care. eating, voiding, ambulating. pain well controlled. abd soft ff2 down nt, incision c/d/i with steris ext nt calves pod#2 s/p c/s routine care. rh pos, bottle, ri. hgb pending. Documented By: Aura Kepm MD, FACOG Coding Level of Care Code None Diagnoses Encounter for assessment Z39.2
== END 2024-05-30 13:00 | disposition home or self-care (01) | DRG 787 ==
LOC: 4S1 07:38 → 4E2 05-28 01:40
DX: Z37.0 Single live birth; O99.214 Obesity complicating childbirth; B95.1 Streptococcus, group B, as the cause of diseases classified elsewhere; O98.82 Other maternal infectious and parasitic diseases complicating childbirth; O26.893 Other specified pregnancy related conditions, third trimester; O48.0 Post-term pregnancy; E66.9 Obesity, unspecified; O76 Abnormality in fetal heart rate and rhythm complicating labor and delivery; O32.3XX0 Maternal care for face, brow and chin presentation, not applicable or unspecified; Z67.11 Type A blood, Rh negative; Z3A.40 40 weeks gestation of pregnancy; Z68.36 Body mass index [BMI] 36.0-36.9, adult

== ENCOUNTER 2024-06-01 13:28 | Inpatient (IN) ==
--- NOTE | 2024-06-01 13:55 | XRay Report ---
XR chest 1V portable CLINICAL HISTORY: Chest pain, nonspecific COMPARISON STUDY: None FINDINGS: Heart size and pulmonary vasculature are normal. No effusion or consolidation. No pneumotho rax. No acute osseous findings. IMPRESSION: No acute findings. ACT 112: Negative or not required by law. Electronically signed by: Geronimo Mendoza M.D. 06/01/2024 1:53 PM
[2024-06-01 14:04] LABS: Basophils # (auto) 0.02 K/uL (0.00-0.20); Basophils % (auto) 0.3 %; Eosinophils # (auto) 0.06 K/uL (0.00-0.50); Hematocrit (blood only) 32.1 % (37.0-47.0); Hemoglobin 10.4 g/dl (12.0-16.0); Immature Granulocytes # (auto) 0.14 K/uL (0.01-0.20); Immature Granulocytes % (auto) 2.3 %; Lymphocytes # (auto) 0.52 K/uL (1.20-3.40); Lymphocytes % (auto) 8.4 %; Mean Corpuscular Hemoglobin 26.3 pg (25.0-34.0); Mean Corpuscular Hgb Conc 32.4 g/dL (32.0-36.0); Mean Corpuscular Volume 81.3 fL (80.0-100.0); Mean Platelet Volume 9.8 fL (9.4-12.4); Monocytes # (auto) 0.32 K/uL (0.11-0.59); Monocytes % (auto) 5.2 %; Neutrophils % (auto) 82.8 %; Platelet Count 280 K/uL (130-400); RDW Coefficient of Variation 15.4 % (11.5-14.5); RDW Standard Deviation 45.3 fL (36.4-46.3); Red Blood Count 3.95 M/uL (4.20-5.40); White Blood Count 6.16 K/ul (4.8-10.8)
[2024-06-01 14:23] LABS: Albumin Globulin Ratio 1.2 (0.9-2); Albumin Level 3.6 gm/dl (3.4-5.0); BUN Creatinine Ratio 21.5 (10-20); Bilirubin,Total 0.3 mg/dl (0.2-1.0); Calcium 9.5 mg/dl (8.6-10.3); Globulin 3.1 gm/dl (2.5-4.0); INR 0.9 (0.9-1.1); Partial Thromboplastin Ratio 0.9; Partial Thromboplastin Time 24 Seconds (21-31); Potassium 3.7 mmol/L (3.5-5.1); Prothrombin Time 9.5 Seconds (9.0-12.0); Total Protein 6.7 gm/dl (6.0-8.3)
[2024-06-01 14:42] LABS: Troponin I High Sensitivity 5.4 pg/ml (0-14)
[2024-06-01] MEDS: SODIUM CHLORIDE 0.9% 1,000 ML IV ONE (14:53)
[2024-06-01 15:04] LABS: Magnesium 1.9 mg/dl (1.7-2.4)
[2024-06-01 15:11] LABS: Appearance Urine Clear (Clear); Bacteria Urine Automated None Seen (None Seen); Bilirubin Urine Negative (Negative); Blood Urine 2+ (Negative); Cast Urine Automated 0-2 /lpf (0-2); Color Urine Yellow; Glucose Urine UA Negative (Negative); Ketones Urine Negative (Negative); Leukocyte Esterase Urine Trace (Negative); Nitrite Urine Negative (Negative); Protein Urine Negative (Negative); Specific Gravity Urine 1.007 (1.000-1.030); Urobilinogen Urine Negative (Negative); WBC Urine Automated 0-5 /hpf (0-5); pH Urine 7.5 (4.5-7.5)
--- NOTE | 2024-06-01 15:19 | Electrocardiogram Report ---
Test Reason : Blood Pressure : */* mmHG Vent. Rate : 64 BPM Atrial Rate : 64 BPM P-R Int : 144 ms QRS Dur : 78 ms QT Int : 392 ms P-R-T Axes : 50 4 14 degrees QTcB Int : 404 ms Sinus rhythm with marked sinus arrhythmia Otherwise normal ECG No previous ECGs available Confirmed by Carl Reilly ([id number]) on 06/01/2024 3:19:29 PM Referred By: Confirmed By: Carl Reilly
[2024-06-01 15:25] LABS: Adenovirus PCR Not Detected (NotDetected); Bordetella parapertussis PCR Not Detected (NotDetected); Bordetella pertussis PCR Not Detected (NotDetected); Chlamydia pneumoniae PCR Not Detected (NotDetected); Coronavirus 229E PCR Not Detected (NotDetected); Coronavirus CoV-2 (COVID19)PCR Not Detected (NotDetected); Coronavirus HKU1 PCR Not Detected (NotDetected); Coronavirus NL63 PCR Not Detected (NotDetected); Coronavirus OC43PCR Not Detected (NotDetected); Human Metapneumovirus PCR Not Detected (NotDetected); Influenza A PCR Not Detected (NotDetected); Influenza B PCR Not Detected (NotDetected); Mycoplasma pneumoniae PCR Not Detected (NotDetected); Parainfluenza Virus 1 PCR Not Detected (NotDetected); Parainfluenza Virus 2 PCR Not Detected (NotDetected); Parainfluenza Virus 3 PCR Not Detected (NotDetected); Parainfluenza Virus 4 PCR Not Detected (NotDetected); Respiratory Syncytial VirusPCR Not Detected (NotDetected); Rhinovirus/Enterovirus PCR Not Detected (NotDetected)
[2024-06-01] MEDS: MAGNESIUM SULFATE / WTR 40 GM/1,000 ML BAG IV SCH (15:40)
[2024-06-01] MEDS ORDERED: ATROPINE SULFATE 0.1 MG/ML SYRINGE INJ PRN (15:41)
[2024-06-01] MEDS: MAG SULFATE 4GM BOLUS FROM BAG IV ONE (15:47)
--- NOTE | 2024-06-01 16:06 | Emergency Department Note ---
Impression & Plan Pre-eclampsia, , Bradycardia ED Provider Note CHIEF COMPLAINT: Lightheadedness, dizziness, shaking, 5 days HISTORY OF PRESENT ILLNESS: This 28-year-old female patient presents to the emergency department via private vehicle 5 days with complaints of lightheadedness, dizziness, and shakiness. The patient is 5 days from a . She denies any complications with her or with her delivery, though notes the was not scheduled and was completed due to positioning and difficulty with pushing. The patient states yesterday, she developed some nausea and dizziness as well as some lightheadedness. She states she feels somewhat spacey and is having difficulty concentrating. She has had a cough, but states this has been lingering since she had influenza about 3 weeks ago. The patient denies any vomiting but has been feeling somewhat nauseated. She denies a headache. She has had some left-sided chest discomfort. She denies any right-sided abdominal pain. She has felt that her ankles are swollen, but this was present since her surgery. Patient has been checking her heart rate and noted it to be in the 40s to 60s at rest or with activity and she notes that when her heart rate is lower, she feels dizzy and lightheaded. Patient has been eating and drinking without difficulty. Pt. having regular bowel movements. She is currently pumping breastmilk. History provided by: Patient REVIEW OF SYSTEMS: A 10 system review of systems was performed with positives and pertinent negatives listed in the history of present illness. All other systems were reviewed and are negative. ALLERGIES: NKDA PHYSICAL EXAM: VITALS: Vitals are noted on the nurse's note and reviewed by myself. GENERAL: This is a 28-year-old female, in no acute distress, nondiaphoretic, well-developed well-nourished. SKIN: Yellow/hernandez bruising noted on the lower abdomen. Incision site from section is intact and without surrounding erythema. No purulent discharge. Steri-Strips are intact. The skin was otherwise without rashes, erythema, edema, or bruising. There is no tenting of the skin. Capillary refill less than 2 seconds. HEAD: Normocephalic atraumatic. EARS: External auditory canals clear, tympanic membranes pearly hernandez without erythema or effusion bilaterally. No hemotympanum. Negative gonzalez sign EYES: Pupils equal round and reactive to light and accommodation. Conjunctivae without injection, sclerae without icterus. Extraocular movements intact. NOSE: Patent, turbinates without inflammation or discharge. No sinus tenderness. MOUTH: Mucous membranes moist. Tonsils are not enlarged. Pharynx without erythema or exudate. Uvula midline. Airway patent. Tongue does not deviate. NECK: Supple without nuchal rigidity. No lymphadenopathy. Cervical spine is nontender. No JVD. HEART: Regular rate and rhythm without murmurs gallops or rubs. LUNGS: Clear to auscultation bilaterally without wheezes, rales or rhonchi. No retractions or accessory muscle use. ABDOMEN: Positive bowel sounds x 4. Soft, nontender, without masses or organomegaly. No guarding or rebound tenderness. MUSCULOSKELETAL: No muscle atrophy, erythema, or edema noted. Full range of motion without joint tenderness in all extremities. No tenderness to palpation. Normal gait. Strength 5/5 throughout. NEURO: Patient was alert and oriented to person place and time. No focal neurological deficits. An order was placed for continuous personnel monitor. The monitor showed a sinus bradycardia at a ventricular rate of 46 bpm, per my interpretation. EKG was reviewed by myself and found to be sinus rhythm with marked sinus arrhythmia with a ventricular rate of [address] elevation or depression. No T wave inversion. No prior EKG available for comparison. Imaging as interpreted by myself and the radiologist revealed no acute findings, with radiologist interpretation as above. I agree with the radiologist's findings as based upon my independent interpretation. EMERGENCY DEPARTMENT COURSE: The patient was seen and evaluated as above. The patient presents to the emergency department 5 days , postoperative state from a section. The patient is feeling lightheaded, dizzy, and experiencing episodes of shaking. She is complaining of bradycardia and noticing her heart rate is in the 40s to 60s at rest. Patient was found to be hypertensive upon arrival to the emergency department. IV access was obtained, labs were drawn. Labs were reviewed. Per my interpretation, no leukocytosis or concerning anemia. No thrombocytopenia. Renal, hepatic function and electrolytes without significant abnormality. TSH is normal. Troponin 5.4. Magnesium is 1.9. Urinalysis positive for blood and leukocyte esterase, does appear to be contaminated specimen. Respiratory bio fire testing was negative. Lyme disease screen was negative. Chest x-ray and head CT were completed and reviewed by myself radiologist as noted. EKG as above. Patient was initially hydrated with IV fluids. Initial blood pressure of 183 systolic did seem to improve to 139 systolic for short time but did increase again to the 160s. Case was discussed with the attending physician. I discussed case with Dr. Tafoya, [facility] on-call. She is familiar with this patient. She recommends the patient be started on magnesium and provided instructions for initiating a bolus and drip. She did recommend the patient be admitted for preeclampsia, but was concerned due to the bradycardia would like the medicine team involved. She did request that I consult with them to help manage the bradycardia and further cardiac workup. I discussed case with Dr. Grant, [facility] hospitalist physician. He did agree to consult on the patient. Recommended the patient have order placed for atropine if she becomes symptomatic (hypotension with bradycardia) as well as pacer pads nearby in case she requires transcutaneous pacing. Dr. Tafoya was updated. The patient was given initial dose of 4 g IV magnesium while in the emergency department. Drip was initiated. Please see [facility] as well as hospitalist dictation regarding ongoing management of this patient. This visit is during a period of high volume and high acuity in the emergency department. I attest that I have personally reviewed the patient medication list. I attest that I have reviewed the patient's blood pressure and it was found to be elevated. Further management by [facility] GCS: 15 In the evaluation and treatment of this patient the following differential diagnoses were entertained: Preeclampsia, eclampsia, heart block, infection, Lyme disease, cardiomyopathy, ACS, dysrhythmia, electrolyte abnormality, metabolic abnormality, malignancy, among others The chart was completed utilizing [employer] Speech voice recognition software. Grammatical errors, random word insertions, pronoun errors, and incomplete sentences are an occasional consequence of this system due to software limitations, ambient noise, and hardware issues. Any formal questions or concerns about the content, text, or information contained within the body of this dictation should be directly addressed to the provider for clarification. Past Med/Surg History Problem List (Updated 06/01/24 @ 22:43 by Isabel Valdez PA-C) Pre-eclampsia, (Acute) Bradycardia (Acute) Encounter for assessment Encounter for pre-operative examination Obesity affecting Cystic fibrosis carrier Encounter for supervision of normal in [facility] Need for rhogam due to Rh negative mother Encounter for anatomic survey Medical History Chicken pox Surgical History S/P section Status post vaginal delivery [place] teeth extracted Family History Grandfather Diabetes Mother Diabetes Hypertension Father Heart disease Denies family history of Ovarian cancer Breast cancer Colorectal cancer Uterine cancer Stroke Social History Smoking Status: Never smoker Second Hand Exposure: No; Do You Dip or Chew Tobacco: No; Hx Alcohol Use: No Hx Substance Use: No Preferred Language: Djib[place]ian Communication Ability: Effective Hearing Ability: Normal Hand Wrapper Operator Required: No Beliefs That Will Affect Care: None marital status: marital status details: Elton Hillsdorie (28) [phone] Current Living Situation: Family Current Living Situation Comment: lives with spouse, child and 2 dogs, 1 cat, spouse to change litter. current occupational status: employed current occupation: [employer] Feels Safe at Home: Yes Diet: regular Gender Identity: Female Assistive Devices: Contacts Allergies Allergies Allergy/AdvReac Type Severity Reaction Status Date / Time No Known Allergies Allergy Verified 05/26/24 14:43 Home Meds Home Medications Medication Instructions Recorded Confirmed 21-iron fu-folic acid 1 tab PO 1XD 10/08/23 06/01/24 [ Complete] Results & Data (ED) Vital Signs Vital Signs - 24 hr 06/01/24 13:32 06/01/24 14:10 06/01/24 14:10 Temperature 36.6 C Temperature Source Temporal Artery Scan Pulse Rate 66 Pulse Rate [Finger] Pulse Rate from SpO2 Sensor Respiratory Rate 18 Respiratory Effort / Characteristics Non-Labored Spontaneous Respiratory Depth Normal Blood Pressure 183/108 H Blood Pressure [Left Arm] Blood Pressure Mean 133 Blood Pressure Mean [Left Arm] Blood Pressure Position Sitting Pulse Oximetry 99 Oxygen Delivery Method Room Air Room Air Room Air Sepsis Recent Fever Within 48 Hours Yes Sepsis New/Unexplained Change in Mental Status No Sepsis Action Taken by Nursing No Action Required 06/01/24 14:10 06/01/24 14:15 06/01/24 14:28 Temperature Temperature Source Pulse Rate 51 L Pulse Rate [Finger] Pulse Rate from SpO2 Sensor 54 L Respiratory Rate 24 Respiratory Effort / Characteristics Respiratory Depth Blood Pressure 139/72 Blood Pressure [Left Arm] Blood Pressure Mean 97 Blood Pressure Mean [Left Arm] Blood Pressure Position Pulse Oximetry 98 Oxygen Delivery Method Room Air Room Air Sepsis Recent Fever Within 48 Hours Sepsis New/Unexplained Change in Mental Status Sepsis Action Taken by Nursing 06/01/24 14:30 06/01/24 14:30 06/01/24 14:38 Temperature Temperature Source Pulse Rate 50 L 56 L Pulse Rate [Finger] Pulse Rate from SpO2 Sensor 50 L Respiratory Rate 24 Respiratory Effort / Characteristics Respiratory Depth Blood Pressure 160/83 H Blood Pressure [Left Arm] Blood Pressure Mean 115 Blood Pressure Mean [Left Arm] Blood Pressure Position Pulse Oximetry 98 Oxygen Delivery Method Room Air Sepsis Recent Fever Within 48 Hours Sepsis New/Unexplained Change in Mental Status Sepsis Action Taken by Nursing 06/01/24 14:39 06/01/24 15:00 06/01/24 15:06 Temperature Temperature Source Pulse Rate 48 L 49 L Pulse Rate [Finger] Pulse Rate from SpO2 Sensor 49 L 47 L Respiratory Rate 24 17 Respiratory Effort / Characteristics Respiratory Depth Blood Pressure 165/96 H Blood Pressure [Left Arm] Blood Pressure Mean 144 Blood Pressure Mean [Left Arm] Blood Pressure Position Pulse Oximetry 98 98 Oxygen Delivery Method Room Air Room Air Sepsis Recent Fever Within 48 Hours Sepsis New/Unexplained Change in Mental Status Sepsis Action Taken by Nursing 06/01/24 15:30 Temperature Temperature Source Pulse Rate Pulse Rate [Finger] 46 L Pulse Rate from SpO2 Sensor Respiratory Rate 28 H Respiratory Effort / Characteristics Respiratory Depth Blood Pressure Blood Pressure [Left Arm] 165/84 H Blood Pressure Mean Blood Pressure Mean [Left Arm] 111 Blood Pressure Position Pulse Oximetry 99 Oxygen Delivery Method Room Air Sepsis Recent Fever Within 48 Hours Sepsis New/Unexplained Change in Mental Status Sepsis Action Taken by Nursing Laboratory Data 06/01/24 18:14 06/01/24 18:14 Lab Results 06/01/24 06/01/24 06/01/24 Range/Units 13:36 14:28 14:55 WBC 6.16 (4.8-10.8) K/ul RBC 3.95 L (4.20-5.40) M/uL Hgb 10.4 L (12.0-16.0) g/dl Hct 32.1 L (37.0-47.0) % MCV 81.3 (80.0-100.0) fL MCH 26.3 (25.0-34.0) pg MCHC 32.4 (32.0-36.0) g/dL RDW Std Deviation 45.3 (36.4-46.3) fL RDW Coeff of Prachi 15.4 H (11.5-14.5) % Plt Count 280 (130-400) K/uL MPV 9.8 (9.4-12.4) fL Immature Gran % (Auto) 2.3 % Neut % (Auto) 82.8 % Lymph % (Auto) 8.4 % [place] % (Auto) 5.2 % Eos % (Auto) 1.0 % Baso % (Auto) 0.3 % Neut # (Auto) 5.10 (1.40-6.50) K/uL Lymph # (Auto) 0.52 L (1.20-3.40) K/uL [place] # (Auto) 0.32 (0.11-0.59) K/uL Eos # (Auto) 0.06 (0.00-0.50) K/uL Baso # (Auto) 0.02 (0.00-0.20) K/uL Immature Gran # (Auto) 0.14 (0.01-0.20) K/uL PT 9.5 (9.0-12.0) Seconds INR 0.9 (0.9-1.1) APTT 24 (21-31) Seconds PTT Ratio 0.9 Sodium 142 (136-145) mmol/L Potassium 3.7 (3.5-5.1) mmol/L Chloride 110 H (98-107) mmol/L Carbon Dioxide 26 (21-32) mmol/L Anion Gap 6 (3-11) BUN 14 (6-23) mg/dl Creatinine 0.65 (0.6-1.2) mg/dl Est Cr Clr Drug Dosing 155.0 ml/min eGFR 122.15 BUN/Creatinine Ratio 21.5 H (10-20) Glucose 90 (70-99(Fasting)) mg/dl Calcium 9.5 (8.6-10.3) mg/dl Magnesium 1.9 (1.7-2.4) mg/dl Total Bilirubin 0.3 (0.2-1.0) mg/dl AST 23 (13-39) U/L ALT 26 (7-52) U/L Alkaline Phosphatase 122 H (34-104) U/L Troponin I High Sens 5.4 (0-14) pg/ml Total Protein 6.7 (6.0-8.3) gm/dl Albumin 3.6 (3.4-5.0) gm/dl Globulin 3.1 (2.5-4.0) gm/dl Albumin/Globulin Ratio 1.2 (0.9-2) TSH 0.933 (0.300-4.500) uIu/ml Urine Color Yellow Urine Appearance Clear (Clear) Urine pH 7.5 (4.5-7.5) Ur Specific [place] 1.007 (1.000-1.030) Urine Protein Negative (Negative) Urine Glucose (UA) Negative (Negative) Urine Ketones Negative (Negative) Urine Blood 2+ H (Negative) Urine Nitrite Negative (Negative) Urine Bilirubin Negative (Negative) Urine Urobilinogen Negative (Negative) Ur Leukocyte Esterase Trace H (Negative) Urine WBC (Auto) 0-5 (0-5) /hpf Urine RBC (Auto) 3-5 H (0-2) /hpf U Hyaline Cast (Auto) 0-2 (0-2) /lpf U Epithel Cells (Auto) 3-5 H (0-2) /hpf Urine Bacteria (Auto) None Seen (None Seen) Adenovirus (PCR) Not Detected (NotDetected) B. pertussis DNA (PCR) Not Detected (NotDetected) B.parapertussis DNA PCR Not Detected (NotDetected) Lyme Disease Screen Negative (Negative) C. pneumoniae DNA (PCR) Not Detected (NotDetected) Coronavirus OC43 (PCR) Not Detected (NotDetected) Coronavirus HKU1 (PCR) Not Detected (NotDetected) Coronavirus 229E (PCR) Not Detected (NotDetected) SARS-CoV-2 (PCR) Not Detected (NotDetected) Coronavirus NL63 (PCR) Not Detected (NotDetected) Human Metapneumovir PCR Not Detected (NotDetected) Influenza Type A (PCR) Not Detected (NotDetected) Influenza Type B (PCR) Not Detected (NotDetected) M. pneumoniae (PCR) Not Detected (NotDetected) Parainfluenza 1 (PCR) Not Detected (NotDetected) Parainfluenza 2 (PCR) Not Detected (NotDetected) Parainfluenza 3 (PCR) Not Detected (NotDetected) Parainfluenza 4 (PCR) Not Detected (NotDetected) RSV (PCR) Not Detected (NotDetected) Entero/Rhino (PCR) Not Detected (NotDetected) Administered Medications Docusate Sodium (Docusate Sodium 100 Mg Cap) 100 mg PO DAILY@, RADHA Stop: 07/01/24 20:59 Last Admin: 06/01/24 20:48 Dose: Not Given Documented By: ELIDIA Magnesium Sulfate (Magnesium Sulfate / Wtr) 40 gm in 1,000 mls @ 50 mls/hr IV .Q20H RADHA Stop: 07/01/24 15:29 Last Admin: 06/01/24 15:40 Dose: 50 mls/hr Documented By: LIZZY Co-signed By: EVAN Sodium Chloride (Nss) 1,000 mls @ 75 mls/hr IV .[id number] RADHA Stop: 06/02/24 18:01 Last Admin: 06/01/24 18:23 Dose: 75 mls/hr Documented By: MONICA Simethicone (Simethicone 80 Mg Chew) 80 mg PO DAILY@08,13,17,21 ARDHA Stop: 07/01/24 18:01 Last Admin: 06/01/24 20:48 Dose: Not Given Documented By: Admin: 06/01/24 18:19 Dose: Not Given Documented By: ADRIANA Discontinued Medications Sodium Chloride (Nss) 1,000 mls @ 999 mls/hr IV .Q1H1M ONE Stop: 06/01/24 15:39 Last Infusion: 06/01/24 16:40 Dose: Infused Documented By: Admin: 06/01/24 14:53 Dose: 999 mls/hr Documented By: NIRAV Magnesium Sulfate (Mag Sulfate 4gm Bolus From Bag) 4 gm IV ONE ONE Stop: 06/01/24 15:17 Last Admin: 06/01/24 15:47 Dose: 4 gm Documented By: LIZZY Co-signed By: EVAN Imaging Data Radiologist's Impression: Chest X-Ray 06/01/24 13:35 XR chest 1V portable CLINICAL HISTORY: Chest pain, nonspecific COMPARISON STUDY: None FINDINGS: Heart size and pulmonary vasculature are normal. No effusion or consolidation. No pneumothorax. No acute osseous findings. IMPRESSION: No acute findings. ACT 112: Negative or not required by law. Electronically signed by: Geronimo Mendoza M.D. 06/01/2024 1:[address] 06/01/24 15:12 CT head without contrast History: Hypertension Comparison: None Technique: Using multidetector thin collimation helical acquisition technique, axial, coronal and sagittal CT images from the skull base to the vertex were obtained without intravenous contrast. Dose reduction techniques were achieved by using automatic exposure control and/or adjustment of mA and/or kV according to patient size and/or use of iterative reconstruction technique. Findings: No intracranial hemorrhage, mass-effect, or midline shift. The ventricles are proportionate to the cerebral sulci. The hernandez to white matter differentiation of the cerebral hemispheres is preserved. The basal cisterns are patent. Left maxillary sinus mucous retention cyst. Mastoid air cells are clear. Impression: No acute intracranial pathology. Electronically signed by Abdifatah Vasquez 06-01-2024 4:10 PM Discharge Plan Visit Data Chief Complaint: Shortness of Breath/Dyspnea Stated Complaint: 5 DAYS , SHAKY PALE, SOB, CHEST PAIN ED Provider: Ja Tellez ED Midlevel Provider: Isabel Valdez Discharge Problem: Pre-eclampsia, , Bradycardia Patient Disposition: Admitted As Inpatient Discharge Instructions Interventions: ED Discharge Assessment Last Done: 06/01/24 17:40
--- NOTE | 2024-06-01 16:10 | CT Scan Report ---
CT head without contrast History: Hypertension Comparison: None Technique: Using multidetector thin collimation helical acquisition technique, axial, coronal and sagittal CT images from the skull base to the vertex were obtained without intravenous contrast. Dose reduction techniques were achieved by using automatic exposure control and/or adjustment of mA and/or kV according to patient size and/or use of iterative reconstruction technique. Findings: No intracranial hemorrhage, mass-effect, or midline shift. The ventricles are proportionate to the cerebral sulci. The hernandez to white matter differentiation of the cerebral hemispheres is preserved. The basal cisterns are patent. Left maxillary sinus mucous retention cyst. Mastoid air cells are clear. Impression: No acute intracranial pathology. Electronically signed by Abdifatah Vasquez 06-01-2024 4:10 PM
--- NOTE | 2024-06-01 16:59 | Hospitalist Consultation ---
Date of Consultation June 01, 2024 Assessment & Plan (1) Bradycardia: eNva is a 28-year-old female -0-0-1 with recent delivery by 05/27/2024 presents to the ER with episodes of lightheadedness and heart pounding. Bradycardia, lightheadedness EKG without ischemic changes. At rest she is bradycardic in the 50s but with movement has chronotropic response and quickly rises to 7080s She has had some feeling of lightheadedness and a strong heartbeat moving slowly when she is at rest and her rate is slow.? From increased preload she has not been hypotensive or actually passed out at any time, and has not had any symptoms when standing or walking Is at risk of cardiomyopathy of . Also has a prominent systolic murmur marked valvular versus flow murmur. Echo ordered Optimize electrolytes magnesium goal 2.0, potassium 4.0 For sx piedad --> atropine 0.5 mg IV up to 3 doses is on-call. May also transcutaneously pace if needed She does not show any evidence of heart block on EKG. Lyme is pending TSH/T4 pending - Continue on telemetry History of Present Illness History of Present Illness Neva is a 28-year-old female -0-0-1 with recent delivery by 05/27/2024 presents to the ER with episodes of lightheadedness and heart pounding. She has no prior history of bradycardia, heart attack, chest pain on exertion, dyspnea on exertion, or arrhythmia. She does have a family history of early DE in her father who recently passed in his 50s from an DE. She has not been hypotensive, but notes when she is laying on the couch she has a 2 episodes where she felt lightheaded and very slow, strong heartbeat. She did not pass out /she has not syncopized at any time. Her slow heart rate is most noticeable when she is laying down, she does not have any symptoms on standing or with exertion. She has not had chest pain at any point. No rashes. No fever/chills. Symptoms improve with exertion/movement She reports her feelings when she is laying down and the lightheadedness feels very similar to when she used to give blood and will get lightheaded afterwards. Medical History: Reviewed Medications: Reviewed Surgical History: Reviewed Family history: Reviewed Allergies: Reviewed. NKDA Social History: No tobacco, etoh, or recreational drug use Code Status: Full Allergies Allergy/AdvReac Type Severity Reaction Status Date / Time No Known Allergies Allergy Verified 05/26/24 14:43 Home Medications Medication Instructions Recorded Confirmed Type 21-iron fu-folic acid 1 tab PO 1XD 10/08/23 06/01/24 History [ Complete] Patient History Medical History Chicken pox Surgical History Status post vaginal delivery [place] teeth extracted Family History Grandfather Diabetes Mother Diabetes Hypertension Father Heart disease Denies family history of Ovarian cancer Breast cancer Colorectal cancer Uterine cancer Stroke Social History Smoking Status: Never smoker Do You Dip or Chew Tobacco: No; Hx Alcohol Use: No Hx Substance Use: No Preferred Language: Welsh Communication Ability: Effective Hearing Ability: Normal Fulfillment Representative Required: No Beliefs That Will Affect Care: None marital status: marital status details: Elton Winston (29) [phone] Current Living Situation: Spouse and Family Current Living Situation Comment: lives with spouse, child and 2 dogs, 1 cat, spouse to change litter. current occupational status: employed current occupation: [employer] Feels Safe at Home: Yes Diet: regular Gender Identity: Female Assistive Devices: None Physical Exam Physical Exam: General: A&Ox3. NAD. Cooperative. HEENT: Atraumatic, normocephalic. Vision and hearing grossly intact Pulm: CTAB A&P. -wheezes, -rales, -rhonchi. Symmetrical chest rise. No increased work of breathing. No respiratory distress. Cardiac: bradycardic-regular RR, +sm. Radial pulses intact and symmetrical. +chronotropic response, hr ranges 50s at rest but rises to 60s-80s with movement and is regular. Ext: warm, dry. soft tissue swelling in the lower extremities, but no pitting edema is present. Results & Data Results & Data Vital Signs (Past 12 Hours) Vital Signs Temp Pulse Pulse Resp BP BP Pulse Ox 06/01/24 15:30 46 L 28 H 165/84 H 99 06/01/24 15:06 49 L 17 98 06/01/24 15:00 165/96 H 06/01/24 14:39 48 L 24 98 06/01/24 14:38 56 L 06/01/24 14:30 50 L 24 98 06/01/24 14:30 160/83 H 06/01/24 14:28 06/01/24 14:15 51 L 24 98 06/01/24 14:10 139/72 06/01/24 14:10 06/01/24 14:10 06/01/24 13:32 36.6 C 66 18 183/108 H 99 O2 Del Method 06/01/24 15:30 Room Air 06/01/24 15:06 Room Air 06/01/24 15:00 06/01/24 14:39 Room Air 06/01/24 14:38 06/01/24 14:30 Room Air 06/01/24 14:30 06/01/24 14:28 Room Air 06/01/24 14:15 Room Air 06/01/24 14:10 06/01/24 14:10 Room Air 06/01/24 14:10 Room Air 06/01/24 13:32 Room Air PG Care Time/CCT Total # of Minutes Spent Total Time Spent with Patient: Total time spent is greater than 50% in coordination of care (as documented) at patient's floor/unit and/or counseling patient: Coding Level of Care Code 05978 IN/OBS CONSULT LVL 4,60M Diagnoses Bradycardia R00.1
[2024-06-01 17:43] LABS: Thyroid Stimulating Hormone 0.933 uIu/ml (0.300-4.500)
[2024-06-01] MEDS ORDERED: HYDROCORTISONE ACETATE 25 MG SUPP PR PRN (18:02)
[2024-06-01] MEDS ORDERED: PROMETHAZINE 12.5 MG/50.5 ML BAG IV PRN (18:02)
[2024-06-01] MEDS ORDERED: ONDANSETRON INJ 2 MG/ML 2 ML VIAL IV PRN (18:02)
[2024-06-01] MEDS ORDERED: CALCIUM CARBONATE 500 MG CHEWABLE TAB PO PRN (18:02)
[2024-06-01] MEDS ORDERED: HYDROmorphone INJ 0.5 MG/0.5 ML SYR IV PRN (18:02)
[2024-06-01] MEDS ORDERED: diphenhydrAMINE 50 MG/ML VIAL IV PRN (18:02)
[2024-06-01] MEDS ORDERED: SENNA 8.6 MG TAB PO PRN (18:02)
[2024-06-01] MEDS ORDERED: oxyCODONE HCL IR 5 MG TAB (IMMEDIATE RELEASE) PO PRN (18:02)
[2024-06-01] MEDS ORDERED: MAGNESIUM HYDROXIDE SUSP 30 ML UDC PO PRN (18:02)
[2024-06-01] MEDS ORDERED: diphenhydrAMINE Capsule 25 MG CAP PO PRN (18:02)
[2024-06-01] MEDS: SIMETHICONE 80 MG CHEW PO SCH (18:19)
[2024-06-01] MEDS: SODIUM CHLORIDE 0.9% 1,000 ML IV SCH (18:23)
[2024-06-01 18:30] LABS: Hematocrit (blood only) 29.3 % (37.0-47.0); Hemoglobin 9.6 g/dl (12.0-16.0); Mean Corpuscular Hemoglobin 26.3 pg (25.0-34.0); Mean Corpuscular Hgb Conc 32.8 g/dL (32.0-36.0); Mean Corpuscular Volume 80.3 fL (80.0-100.0); Mean Platelet Volume 9.7 fL (9.4-12.4); Platelet Count 276 K/uL (130-400); RDW Coefficient of Variation 15.3 % (11.5-14.5); RDW Standard Deviation 44.8 fL (36.4-46.3); Red Blood Count 3.65 M/uL (4.20-5.40)
[2024-06-01 18:47] LABS: Albumin Globulin Ratio 1.1 (0.9-2); Albumin Level 3.3 gm/dl (3.4-5.0); BUN Creatinine Ratio 21.6 (10-20); Bilirubin,Total 0.3 mg/dl (0.2-1.0); Calcium 8.6 mg/dl (8.6-10.3); Creatinine Clr Calc Pharmacy 196.3 ml/min; Magnesium Therapeutic L&D Only 3.7 mg/dL (4.0-8.0); Potassium 3.7 mmol/L (3.5-5.1); Total Protein 6.3 gm/dl (6.0-8.3)
[2024-06-01] MEDS: DOCUSATE SODIUM 100 MG CAP PO SCH (20:48)
--- NOTE | 2024-06-01 20:48 | History & Physical Report ---
Date of Service June 01, 2024 Assessment & Plan (1) Bradycardia: Plan: Given patient's bradycardia, have asked hospitalist medicine team to assist in evaluation and management of patient's bradycardia. I spoke with Dr Grant, who ordered a cardiac echo. Given recent delivery, discussed concern for risk of cardiomyopathy. Will admit to PCU/tele floor, appreciate medicine team assistance in this eval/workup/management. (2) Pre-eclampsia, : Plan: Elevated BPs in ER with no history of hypertension during . She is asymptomatic (no headache, vision changes, RUQ pain) and lab workup for preeclampsia showed normal platelets, kidney function, and liver enzymes. I am not sure whether these elevated BPs are more related to her bradycardia or if this is part of a preeclampsia picture, however, since she has severe range blood pressures and is 5 days' , would recommend treatment with 24- hour course of magnesium to prevent progression to eclampsia/seizures if this is in fact preE. I discussed this reasoning with patient and she is agreeable to the course of mag treatment. Will continue regular preeclampsia labs during the magnesium treatment. Breast pumping, I have contact service delivery consultant for patient to obtain a breast pump for use during her hospital stay. Admission and Anticipated Discharge Date Admission Date: June 01, 2024 History of Present Illness Chief Complaint: Low heart rate at home, feeling weak and dizzy Primary Care Provider: LUBA Middleton 28-year-old , presented to emergency department as directed by the OB office earlier today, after she contacted office with symptoms of low heart rate in the 40s to 60s over the past 2 days. Described feeling weak. On evaluation in the emergency department, patient denies headache, vision changes. She feels weak and can feel her heart pumping slowly when she is lying down, however when she gets up and moves around, it feels like her heart rate improves. She denies fever, chills, nausea, vomiting. Is eating and drinking well. Is passing gas and having bowel movements. Her postoperative pain is well-controlled using eins-jxs-cljeahl medications. She is breast pumping. Small amount of lochia. She delivered by section on 05/27/2024 after presenting for induction of labor, during labor developed face presentation, prompting primary low- transverse section. She had routine recovery, and was discharged home feeling well on 05/30/2024. Her was complicated by obesity and group B strep positive urine sample. The patient is a CF carrier, FOB is negative. She was Rh- status, received RhoGAM. She was normotensive during the . She has no known cardiac problems, however expresses concern that her father this past summer at age 51 of a myocardial infarction. Allergies Allergy/AdvReac Type Severity Reaction Status Date / Time No Known Allergies Allergy Verified 05/26/24 14:43 Home Medications Medication Instructions Recorded Confirmed Type 21-iron fu-folic acid 1 tab PO 1XD 10/08/23 06/01/24 History [ Complete] Patient History Medical History Chicken pox Surgical History Status post vaginal delivery Glady teeth extracted Family History Grandfather Diabetes Mother Diabetes Hypertension Father Heart disease Denies family history of Ovarian cancer Breast cancer Colorectal cancer Uterine cancer Stroke Social History Smoking Status: Never smoker Second Hand Exposure: No; Do You Dip or Chew Tobacco: No; Hx Alcohol Use: No Hx Substance Use: No Preferred Language: Polish Communication Ability: Effective Hearing Ability: Normal Telegraph Mechanic Required: No Beliefs That Will Affect Care: None marital status: marital status details: Elton Winston (29) [phone] Current Living Situation: Family Current Living Situation Comment: lives with spouse, child and 2 dogs, 1 cat, spouse to change litter. current occupational status: employed current occupation: [employer] Feels Safe at Home: Yes Diet: regular Gender Identity: Female Assistive Devices: Contacts Physical Exam Physical Exam: Constitutional: alert, in no acute distress, well nourished Skin: normal skin color and pigmentation, normal skin turgor and no rash. Neck: the appearance of the neck was normal, no neck mass was observed Pulmonary: no respiratory distress, normal respiratory rhythm and effort Cardiovascular: heart rate bradycardic - 40s-50s at rest, increases with movement to 60-70s Abdomen: soft, non-tender, lower abdomen with healing bruising. Incision is intact, clean, dry. Steri strips in place. Neurological: The patient was oriented to person, place, and time. Mood and affect were appropriate. Extremities: No edema, no calf tenderness. Results & Data Vital Signs (Past 12 Hours) Vital Signs Temp Pulse Pulse Resp BP BP Pulse Ox 06/01/24 18:27 52 L 06/01/24 18:02 36.8 C 16 142/77 H 100 06/01/24 17:30 82 18 161/86 H 95 06/01/24 15:30 46 L 28 H 165/84 H 99 06/01/24 15:06 49 L 17 98 06/01/24 15:00 165/96 H 06/01/24 14:39 48 L 24 98 06/01/24 14:38 56 L 06/01/24 14:30 50 L 24 98 06/01/24 14:30 160/83 H 06/01/24 14:28 06/01/24 14:15 51 L 24 98 06/01/24 14:10 139/72 06/01/24 14:10 06/01/24 14:10 06/01/24 13:32 36.6 C 66 18 183/108 H 99 O2 Del Method 06/01/24 18:27 06/01/24 18:02 Room Air 06/01/24 17:30 Room Air 06/01/24 15:30 Room Air 06/01/24 15:06 Room Air 06/01/24 15:00 06/01/24 14:39 Room Air 06/01/24 14:38 06/01/24 14:30 Room Air 06/01/24 14:30 06/01/24 14:28 Room Air 06/01/24 14:15 Room Air 06/01/24 14:10 06/01/24 14:10 Room Air 06/01/24 14:10 Room Air 06/01/24 13:32 Room Air Coding Level of Care Code 33961 INT INP/OBS CARE 2/55MIN Diagnoses Bradycardia R00.1 Pre-eclampsia, O14.95
--- OUTSIDE RECORDS SUMMARY | 2024-06-01 22:22 | External Medical Summary | Continuity of Care Document ---
Author Name Unknown Organization [facility] Address [address], [place] [address] Phone [phone] Problems Description No Active Problems Social History Type Date Description Comments Sex Unknown Tobacco Use Reviewed: 05/21/24 Never Smoked Cigarette s Tobacco Use Reviewed: 05/21/24 Never Smoked Cigars Tobacco Use Reviewed: 05/21/24 Never Smoked A Pipe Smoking Status Reviewed: 05/21/24 Never Smoked A Pipe Smokeless Tobacco 05/21/2024 Never Used Smokeless To bacco Allergies and adverse reactions Description No Known Drug Allergies Medications Description No Active Medications Medications Administered in Office Medication SIG Qnty Indications Ordering Provider Date Injection Depo Provera PT SupplyInjection LUBA Thompson Injection Depo Provera PT SupplyInjection LUBA Thompson 03/2019 Injection Depo Provera PT SupplyInjection LUBA Thompson Injection Ketorolac Trometha mine Per 15 mg/.5cc (Toradol)Injection LUBA Thompson 04/22/2018 Injection Methylprednisolone Acetate 20 MGInjection Mary Thompson 04/22/2018 Injection Depo Provera PT SupplyInjection LUBA Thompson Injection Depo Provera PT SupplyInjection LUBA Thompson 12/2017 Injection Depo Provera PT SupplyInjection LUBA Thompson Injection Depo Provera PT SupplyInjection LUBA Thompson Injection Depo Provera PT SupplyInjection Kayleigh Johnson PA-C 01/26 Injection Depo Provera PT SupplyInjection Kayleigh Johnson, PA-C 10/27 Injection Depo Provera PT SupplyInjection Kayleigh Johnson, JORGE-C 08/27 Injection Depo Provera PT SupplyInjection Kayleigh Lenbarry, PA-C 06/26 Injection Depo Provera PT SupplyInjection Jordon MitchellDO 2013 Injection Depo Provera PT SupplyInjection Drake JORGE Poe-C 2011 Injection Depo Provera PT SupplyInjection Drake Ashleyosei, PA-C 2011 Injection Depo Provera PT SupplyInjection Drake Deepika, PA-C 2010 Immunizations CPT Code Status Date Vaccine Reaction Lot # [id number] Given 09/17/2021 Moderna Sars-Co v-2 (Cov-19) vacc,100 mcg/ 0.5 mL 12Y+EMR Doc Only [id number] Given 01/08/2017 Influenza Virus Vaccine, Quadrivalent, Im Use [id number] 12238 Given 11/13/2016 Bexsero [id number] 65879 Given 10/22/2016 TB Intradermal Test PPD R ead on 10/24/16 @ 9:29, Negative 0MM ........ Rosi Chang [id number] 91733 Given 10/11/2016 Menactra/Menveo Meningococcal Conjugate Age 9 Months-55Yr [id number] 28180 Given 10/11/2016 Tdap (Tetanus, diphtheria & acel. pertussis) Adacel or Boostrix [id number] 48371 Given 10/11/2016 HPV Vaccine (Gardasil-9) [id number] 18298 Given 10/11/2016 Bexsero [id number] 19834 Given 10/11/2016 TB Intradermal Test 00mm read by Heide KNOTT 10/14/16 910am. [id number] 35563 Given 01/05/2016 HPV Vaccine (Gardasil-9) [id number] 24313 Given 11/03/2015 HPV Vaccine (Gardasil-9) [id number] 07989 Refused 01/23/2021 Influenza Virus Vaccine, Quadrivalent, Split Virus, Im Use [id number] Refused 01/23/2021 Pfizer Sars-Cov -2 (Cov-19) vacc 30mcg/0.3ML 12Y+ EMR Doc Only [id number] Refused 06/22/2020 Influenza Vaccine-Administered at another facility 22406 Refused 03/11/2018 Influenza Virus Vaccine, Quadrivalent, Im Use [id number] Refused 10/11/2016 Influenza Virus Vaccine, Quadrivalent, Im Use 28405 Refused 03/23/2016 Tdap (Tetanus, diphtheria & acel. pertussis) Adacel or Boostrix 55516 Refused 04/15/2014 Influenza Virus Vaccine, Quadrivalent, Im Use [id number] Refused 04/15/2014 HPV Vaccine (Gardasil) Vital Signs Date Vital Result Comment 05/21/2024 8:56am BP Systolic 110 mmHg BP Diastolic 70 mmHg Body Temperature 97.9 F Heart Rate 86 /min Respiratory Rate 16 /min Weight 230.00 lb Weight 104.328 kg Height 67 inches 5'7" BMI (Body Mass Index) 36.0 kg/m2 O2 % BldC Oximetry 99 % [place] Body Weight 135 lb 02/13/2023 8:12am BP Systolic 118 mmHg BP Diastolic 76 mmHg Body Temperature 98.2 F Heart Rate 76 /min Respiratory Rate 18 /min Weight 220.00 lb Weight 99.792 kg Results Test Acquired Date Facility Test Result H/L [place] Laboratory test finding 05/21/2024 [facility] (In Office Test) Influenza A Molecular flu A positive Laboratory test finding 05/21/2024 [facility] (In Office Test) Sars Rna QL PCR - In Office not detected Medical Devices Description No Information Available Encounters Type Date Location Provider Dx Diagnosis Office Visit 05/21/2024 9:00a [facility] , DO J02 .9 Acute pharyngitis, unspecified R09.81 Nasal congestion J09.x2 Flu due to ident nov el influenza A virus w oth resp manifest Assessments Date Code Description Provider 05/21/2024 J02.9 Acute pharyngitis, unspecifi ed , DO 05/21/2024 R09.81 Nasal congestion , DO 05/21/2024 J09.x2 Influenza caused by Influenz a A virus , DO Plan of Treatment 05/21/2024 - , * J02.9 Acute pharyngitis, unspecified * R09.81 Nasal congestion * J09.x2 Influenza caused by Influenza A virus* Comments:* In office testing is positive for influenza A. With symptoms for 5-6 days, patient is outside the window for Tamiflu. She is already using Robitussin for cough, and benzonatate is not recommended in . Recommend that she maintain good hydration, use honey and/or robitussin for cough, and rest. Contact OB if any changes in movement. Follow up as scheduled with OB. * Recommendations:* Rest. Increase fluids. Call if worsening or no improvement. Functional Status Description No Information Available Mental Status Description No Information Available Referrals Description No Information Available
[2024-06-02 00:55] LABS: Hematocrit (blood only) 28.3 % (37.0-47.0); Hemoglobin 9.2 g/dl (12.0-16.0); Mean Corpuscular Hemoglobin 26.3 pg (25.0-34.0); Mean Corpuscular Hgb Conc 32.5 g/dL (32.0-36.0); Mean Corpuscular Volume 80.9 fL (80.0-100.0); Platelet Count 275 K/uL (130-400); RDW Coefficient of Variation 15.3 % (11.5-14.5); RDW Standard Deviation 44.9 fL (36.4-46.3)
[2024-06-02 01:10] LABS: Albumin Globulin Ratio 1.2 (0.9-2); Albumin Level 3.4 gm/dl (3.4-5.0); BUN Creatinine Ratio 18.5 (10-20); Bilirubin,Total 0.3 mg/dl (0.2-1.0); Calcium 7.5 mg/dl (8.6-10.3); Creatinine Clr Calc Pharmacy 185.4 ml/min; Globulin 2.8 gm/dl (2.5-4.0); Magnesium Therapeutic L&D Only 4.6 mg/dL (4.0-8.0); Potassium 3.4 mmol/L (3.5-5.1); Total Protein 6.2 gm/dl (6.0-8.3)
[2024-06-02 06:41] LABS: Hematocrit (blood only) 28.5 % (37.0-47.0); Hemoglobin 9.4 g/dl (12.0-16.0); Mean Corpuscular Hemoglobin 26.2 pg (25.0-34.0); Mean Corpuscular Volume 79.4 fL (80.0-100.0); Mean Platelet Volume 9.7 fL (9.4-12.4); Platelet Count 258 K/uL (130-400); RDW Coefficient of Variation 15.1 % (11.5-14.5); RDW Standard Deviation 43.8 fL (36.4-46.3); Red Blood Count 3.59 M/uL (4.20-5.40); White Blood Count 5.76 K/ul (4.8-10.8)
[2024-06-02 06:52] LABS: Albumin Globulin Ratio 1.2 (0.9-2); Albumin Level 3.2 gm/dl (3.4-5.0); Bilirubin,Total 0.3 mg/dl (0.2-1.0); Calcium 7.7 mg/dl (8.6-10.3); Creatinine Clr Calc Pharmacy 188.9 ml/min; Globulin 2.7 gm/dl (2.5-4.0); Magnesium Therapeutic L&D Only 5.1 mg/dL (4.0-8.0); Potassium 3.6 mmol/L (3.5-5.1); Total Protein 5.9 gm/dl (6.0-8.3)
--- NOTE | 2024-06-02 08:26 | XCELERA ---
[id number] \\[id number]
--- NOTE | 2024-06-02 08:54 | Obstetrical Progress Note ---
Date of Service June 02, 2024 Assessment & Plan Admission and Anticipated Discharge Date Admission Date: June 01, 2024 Subjective Feeling better this morning. Breast pumping. Ambulating. Eating/drinking. Magnesium set to run until 3:30 - I think preeclampsia is unlikely at this point. No headache, no RUQ pain, no LE edema. On exam, incision CDI, abdomen soft/NTTP/nondistended. No LE edema. Had cardiac echo this morning - will await input from hospitalist/medicine team. If ok from cardiac standpoint, will likely plan for DC home this afternoon. With questions/concerns please contact on-call OBGYN physician. Results & Data Vital Signs (Past 12 Hours) Vital Signs Temp Pulse Pulse Resp BP Pulse Ox O2 Del Method 06/02/24 08:50 61 06/02/24 07:03 36.5 C 60 20 138/89 100 Room Air 06/02/24 03:04 36.5 C 65 18 167/84 H Room Air 06/01/24 23:13 36.5 C 53 L 18 155/83 H 100 Room Air PG Care Time/CCT Total # of Minutes Spent Total Time Spent with Patient: Total time spent is greater than 50% in coordination of care (as documented) at patient's floor/unit and/or counseling patient: Coding Level of Care Code 93168 SUB INP/OBS CARE 2/35MIN
[2024-06-02] MEDS: PRENATAL VITAMIN 1 TAB PO SCH (09:26)
[2024-06-02] MEDS: FERROUS SULFATE 325 MG TAB PO SCH (09:28)
[2024-06-02 13:17] LABS: Hematocrit (blood only) 31.8 % (37.0-47.0); Hemoglobin 10.2 g/dl (12.0-16.0); Mean Corpuscular Hemoglobin 25.8 pg (25.0-34.0); Mean Corpuscular Hgb Conc 32.1 g/dL (32.0-36.0); Mean Corpuscular Volume 80.5 fL (80.0-100.0); Mean Platelet Volume 9.4 fL (9.4-12.4); Platelet Count 300 K/uL (130-400); RDW Standard Deviation 44.3 fL (36.4-46.3); Red Blood Count 3.95 M/uL (4.20-5.40); White Blood Count 6.62 K/ul (4.8-10.8)
[2024-06-02 13:31] LABS: Albumin Globulin Ratio 1.2 (0.9-2); Albumin Level 3.5 gm/dl (3.4-5.0); BUN Creatinine Ratio 15.1 (10-20); Bilirubin,Total 0.3 mg/dl (0.2-1.0); Calcium 7.1 mg/dl (8.6-10.3); Creatinine Clr Calc Pharmacy 137.1 ml/min; Magnesium Therapeutic L&D Only 5.2 mg/dL (4.0-8.0); Potassium 3.4 mmol/L (3.5-5.1); Total Protein 6.5 gm/dl (6.0-8.3)
--- NOTE | 2024-06-02 14:44 | Obstetrical Progress Note ---
Date of Service June 02, 2024 Assessment & Plan (1) Pre-eclampsia, : Plan discussed with pt that some of her recent sx could be just from being on Mag. due to dc at 1530. my concern is labile bp and i came down to let her know i may need to decide to trt. I will plan to d/w her hospitalist team but would consider nifed xl 30mg if they did not object. I think after coming off Mag we will get a better sense of her true bp. She asks if all of this could be pp hypertension and I do think that is likely the case, her low pulse is just unusual and so glad that she came in for evaluation. It is unclear to me if given pulse has been improved, with no trt that I am aware of, if later today she would be floor candidate, in which case would like to bring her to S if able and monitor bps at least overnight. Pt aware that this is what i am thinking. I have messaged hospitalist md and waiting to speak to them as well. Admission and Anticipated Discharge Date Admission Date: June 01, 2024 Subjective pt notes recently getting up to BR and felt funny, dizzy, visual change? she now has elevated bp. she seems frustrated. notes large volume voids. no edouard i did review her labs and echo report. Review of Systems Constitutional: as per Subjective / HPI Physical Exam Constitutional: WD/WN, vitals as above Neurologic: dtrs +3 no clonus Results & Data Vital Signs (Past 12 Hours) Vital Signs Temp Pulse Pulse Pulse Resp BP Pulse Ox 06/02/24 14:19 68 17 153/90 H 100 06/02/24 12:07 97.5 F L 78 20 127/78 100 06/02/24 09:35 78 141/86 H 06/02/24 08:50 61 06/02/24 07:03 97.7 F 60 20 138/89 100 06/02/24 03:04 97.7 F 65 18 167/84 H O2 Del Method 06/02/24 14:19 Room Air 06/02/24 12:07 Room Air 06/02/24 09:35 06/02/24 08:50 06/02/24 07:03 Room Air 06/02/24 03:04 Room Air PG Care Time/CCT Total # of Minutes Spent Total Time Spent with Patient: Total time spent is greater than 50% in coordination of care (as documented) at patient's floor/unit and/or counseling patient: Coding Level of Care Code None Diagnoses Pre-eclampsia, O14.95
[2024-06-02] MEDS: LORazepam 2 MG/1 ML VIAL IV STA (16:48)
[2024-06-02] MEDS: NIFEdipine EXTENDED REL 30 MG TABCR PO STA (16:49)
--- NOTE | 2024-06-02 20:06 | Hospitalist Progress Note ---
Date of Service June 02, 2024 Assessment & Plan (1) Bradycardia: Plan: 28 years old female, -0-0-1 with recent delivery by (05/27/2024), and obesity with BMI 34.0 (height 170.2 cm; weight 98.6 kg), who presented to [facility] on 06/01/2024 with complaints of lightheadedness and heart pounding. Bradycardia RESOLVING; intermittent lightheadedness PERSISTING on 06/02/2024. EKG without ischemic changes. At rest she is bradycardic in the 50s but with movement has chronotropic response and quickly rises to 7080s She has had some feeling of lightheadedness and a strong heartbeat moving slowly when she is at rest and her rate is slow.? From increased preload she has not been hypotensive or actually passed out at any time, and has not had any symptoms when standing or walking Is at risk of cardiomyopathy of . Also has a prominent systolic murmur marked valvular versus flow murmur. Maintain Mg level > 2.0 mg/dL; K > 4.0 mmol/L. For symptomatic bradycardia --> atropine 0.5 mg IV up to 3 doses is on-call. May also transcutaneously pace if needed She does not show any evidence of heart block on EKG. Lyme (e.g., Treponema pallidum) antibody- (06/01/2024, 6:14pm). - Continue telemetry overnight. (2) hypertension: Plan: Started nifedipine XL 30mg PO qam (start date/time, 06/02/2024, 4:23pm) for BP 151/85 (06/02/2024, 3:13pm). cf., repeat BP 115/63 (06/02/2024, 5:59pm). Subsequently, patient's BP has increased to 160/101 (06/02/2024, 7:30pm) to 161/96 (06/02/2024, 7:52pm). Consequently, I have increased nifedipine XL 30mg PO qam (start date/time, 06/02/2024, 4:23pm) to nifedipine XL 60mg PO daily (06/02/2024, 8:06pm), to improve short-term BP control overnight. Admission and Anticipated Discharge Date Admission Date: June 01, 2024 Subjective "I am ok. I felt a little anxious earlier today. The ativan helped a lot. Thanks." Review of Systems Constitutional: Negative for antecedent/coincident fevers, chills, diaphoresis, cough, wheeze, sore throat, hemoptysis, chest pains, palpitations, pleurisy, nausea, vomiting, diarrhea, abdominal pain, pelvic pain, hematemesis, hematochezia, melena, hematuria, dysuria, frequency, urgency, headaches, dizziness, lightheadedness, visual changes, hearing changes, weakness, falls, syncope, trauma, travel history, sick contacts, or food/drug ingestions novel or new. All other review of systems are reported as negative by the patient on 06/02/2024. Physical Exam Constitutional: General: comfortable, coherent, cooperative. Wide awake and alert. Not confused, lethargic, or obtunded. Patient speaks in complete, fluent, and articulate sentences without pause, interruption, cough, or wheeze. HEENT: NC/AT. EOMI, PERRL. No nystagmus, gaze paresis, anisocoria, miosis, mydriasis, hyphema, chemosis, scleral icterus, conjunctivitis, or pterygium. No otorrhea, no rhinorrhea. No pharyngeal discharge or erythema. Neck: Supple, no stridor, bruit, goiter, or hepatojugular reflux. Jugular venous pressure is estimated to be 8 cm above the sternal angle of Reginald, which is typically 5 cm above the level of the right atrium. Hence, there is no jugu lar venous distention noted on discharge exam 06/02/2024. Lymphatics: No pre-post auricular, anterior/posterior cervical, supraclavicular/infraclavicular, axillary, epitrochlear, or inguinal adenopathy. Chest: Symmetric rise and fall with respirations. Non-tender to palpation. Heart: RRR, S1 and S2 noted. No S3 or S4 summation gallop noted. No tripartite friction rub. Grade II/ early systolic murmur @ LLSB without radiation to the carotids, axilla, or back, and which remains invariant in regards to the respiratory cycle. Lungs: Clear to auscultation and percussion. No audible expiratory wheeze, egophony, pectoriloquy, increase in tactile fremitus, or flatness/dullness to percussion at the bases. Abdomen: Soft, non-tender, non-distended. No rebound, guarding, Bailon's sign, or organomegaly. Bowel sounds auscultated in all 4 quadrants. Extremities: No clubbing, cyanosis, or edema. 2+ pedal pulses bilaterally. Skin: No decubitus ulcer, exanthem, or enanthem. Neurology: Alert and oriented in regards to person, place, time, and situation. DTR+ and symmetric. 5/5 motor strength in all 4 extremities, both proximally and distally. No myoclonus, tremors, or tics. Urology: No flood catheter. No urethral discharge. Psychiatry: Appropriate affect. Smiles occasionally. No homicidal/suicidal ideation. Results & Data Results & Data Vital Signs (Past 12 Hours) Vital Signs Temp Pulse Pulse Pulse Resp BP Pulse Ox 06/02/24 19:52 161/96 H 06/02/24 19:30 160/101 H 06/02/24 19:14 36.9 C 58 L 18 162/85 H 97 06/02/24 18:04 63 06/02/24 18:00 67 142/81 H 06/02/24 17:59 65 115/63 06/02/24 15:13 36.8 C 66 19 151/85 H 100 06/02/24 14:47 68 148/83 H 100 06/02/24 14:19 68 17 153/90 H 100 06/02/24 12:07 36.4 C L 78 20 127/78 100 06/02/24 09:35 78 141/86 H 06/02/24 08:50 61 O2 Del Method 06/02/24 19:52 06/02/24 19:30 06/02/24 19:14 Room Air 06/02/24 18:04 06/02/24 18:00 06/02/24 17:59 06/02/24 15:13 Room Air 06/02/24 14:47 Room Air 06/02/24 14:19 Room Air 06/02/24 12:07 Room Air 06/02/24 09:35 06/02/24 08:50 Diagnostic Findings TTE (06/02/2024, 6:43am): 1. LVEF 55-60%. LV wall motion normal. 2. RV mildly dilated. RV systolic function normal. 3. LA mildly dilated. RA mildly dilated. No evidence of ASD. 4. No . No AR. 5. No WA. 6. No MS. No MR. 7. Mild TR. RVSP normal. 8. Aortic root normal size. Aortic arch normal dimension. 9. IVC normal diameter and respiratory variation suggests normal CVP. 10.No pericardial effusion. (as per CARDS Dr. Carl Reilly). PG Care Time/CCT Total # of Minutes Spent Total Time Spent with Patient: Total time spent is greater than 50% in coordination of care (as documented) at patient's floor/unit and/or counseling patient: Coding Level of Care Code 75543 SUB INP/OBS CARE 2/35MIN Diagnoses Bradycardia R00.1 hypertension O16.5
[2024-06-02] MEDS: hydrALAZINE HCL 20 MG/ML VIAL IV ONE (20:18)
[2024-06-02] MEDS: NIFEdipine EXTENDED REL 30 MG TABCR PO SCH (21:45)
--- NOTE | 2024-06-02 22:07 | Communication Note ---
Date of Service: June 02, 2024 called nursing to check in on pt bps. as last one i see is 161/96 at 1952. Given high values pt was given hydralazine iv per hospitalist and i am told her bp responded to 130s/70-80(not yet charted). I do see that the am nifedipine xl was increased as well to 60mg. appreciate hospitalist help.
[2024-06-03] MEDS: IBUPROFEN 600 MG TAB PO PRN (04:11)
[2024-06-03] MEDS: IBUPROFEN 600 MG TAB PO ONE (04:19)
[2024-06-03 07:55] VITALS: BP 125/77; PULSE 74; RESP 20; TEMP 97.9; O2SAT 98
--- NOTE | 2024-06-03 08:05 | Obstetrical Progress Note ---
Date of Service June 03, 2024 Assessment & Plan (1) Pre-eclampsia, : (2) hypertension: Plan pt doing well. feels much better. pulse improved. bps are within pp range now taking procardia xl 60mg, plan for q pm. spoke to Hospitalist Dr. Li and he is ok with her dc home. DC written, plan bp check in office on friday. reviewed with patient. if she needs us to send nifed to another pharm she will let us know. Admission and Anticipated Discharge Date Admission Date: June 01, 2024 Subjective pt feels well this am. she is sitting in bed eating breakfast no concerns she tells me they just restarted her magnesium, we immediately stopped in, about 10min worth infused. Review of Systems Constitutional: as per Subjective / HPI Physical Exam Constitutional: WD/WN, vitals as above Gastrointestinal (Abdomen): Inspection/Auscultation: abdomen normal to inspection Percussion/Palpation: abdomen soft Fundus firm 2cm down Musculoskeletal: nt calves tr edema Neurologic: grossly normal Psychiatric: A+Ox3, euthymic affect Results & Data Vital Signs (Past 12 Hours) Vital Signs Temp Pulse Pulse Pulse Resp BP Pulse Ox 06/03/24 07:54 97.9 F 74 20 125/77 98 06/03/24 06:52 58 L 06/03/24 03:12 98.2 F 71 18 138/76 95 06/02/24 23:53 78 06/02/24 23:48 98.0 F 82 18 135/76 98 06/02/24 23:48 O2 Del Method 06/03/24 07:54 Room Air 06/03/24 06:52 06/03/24 03:12 Room Air 06/02/24 23:53 06/02/24 23:48 Room Air 06/02/24 23:48 Room Air PG Care Time/CCT Total # of Minutes Spent Total Time Spent with Patient: Total time spent is greater than 50% in coordination of care (as documented) at patient's floor/unit and/or counseling patient: Coding Level of Care Code 66349 SUB INP/OBS CARE 2/35MIN Diagnoses Pre-eclampsia, O14.95 hypertension O16.5
[2024-06-03] MEDS ORDERED: NIFEdipine EXTENDED REL 30 MG TABCR PO SCH (09:00)
--- NOTE | 2024-06-03 15:54 | Hospitalist Progress Note ---
Date of Service June 03, 2024 Assessment & Plan (1) Bradycardia: Plan: 28 years old female, -0-0-1 with recent delivery by (05/27/2024), and obesity with BMI 34.0 (height 170.2 cm; weight 98.6 kg), who presented to [facility] ER on 06/01/2024 with complaints of lightheadedness and heart pounding. Bradycardia RESOLVED; intermittent lightheadedness RESOLVED on 06/03/2024. D/C home today, 06/03/2024 with nifedipine XL 60mg PO qpm, which the patient can take at her home later this evening, 06/03/2024, after patient arrives back to her home later today, 06/03/2024. (2) hypertension: Plan: Started nifedipine XL 30mg PO qam (start date/time, 06/02/2024, 4:23pm) for BP 151/85 (06/02/2024, 3:13pm). cf., repeat BP 115/63 (06/02/2024, 5:59pm). Subsequently, patient's BP increased to 160/101 (06/02/2024, 7:30pm) to 161/96 (06/02/2024, 7:52pm). Consequently, I increased nifedipine XL 30mg PO qam (start date/time, 06/02/2024, 4:23pm) to nifedipine XL 60mg PO daily (06/02/2024, 8:06pm), to improve short-term BP control overnight. Subsequently, patient's BP has improved and patient has a discharge BP 125/77 (06/03/2024, 9:45am). Consequently, patient will be D/C home today, 06/03/2024 with nifedipine XL 60mg PO qpm, which the patient can take at her home later this evening, 06/03/2024, after patient arrives back to her home later today, 06/03/2024. Admission and Anticipated Discharge Date Admission Date: June 01, 2024 Subjective "I feel fine. No complaints. I want to go home today." Review of Systems Constitutional: Negative for antecedent/coincident fevers, chills, diaphoresis, cough, wheeze, sore throat, hemoptysis, chest pains, palpitations, pleurisy, nausea, vomiting, diarrhea, abdominal pain, pelvic pain, hematemesis, hematochezia, melena, hematuria, dysuria, frequency, urgency, headaches, dizziness, lightheadedness, visual changes, hearing changes, weakness, falls, syncope, trauma, travel history, sick contacts, or food/drug ingestions novel or new. All other review of systems are reported as negative by the patient on 06/03/2024. Physical Exam Constitutional: General: comfortable, coherent, cooperative. Wide awake and alert. Not confused, lethargic, or obtunded. Patient speaks in complete, fluent, and articulate sentences without pause, interruption, cough, or wheeze. HEENT: NC/AT. EOMI, PERRL. No nystagmus, gaze paresis, anisocoria, miosis, mydriasis, hyphema, chemosis, scleral icterus, conjunctivitis, or pterygium. No otorrhea, no rhinorrhea. No pharyngeal discharge or erythema. Neck: Supple, no stridor, bruit, goiter, or hepatojugular reflux. Jugular venous pressure is estimated to be 8 cm above the sternal angle of Reginald, which is typically 5 cm above the level of the right atrium. Hence, there is no jugular venous distention noted on discharge exam 06/03/2024. Lymphatics: No pre-post auricular, anterior/posterior cervical, supraclavicular/infraclavicular, axillary, epitrochlear, or inguinal adenopathy. Chest: Symmetric rise and fall with respirations. Non-tender to palpation. Heart: RRR, S1 and S2 noted. No S3 or S4 summation gallop noted. No tripartite friction rub. Grade II/ early systolic murmur @ LLSB without radiation to the carotids, axilla, or back, and which remains invariant in regards to the respiratory cycle. Lungs: Clear to auscultation and percussion. No audible expiratory wheeze, egophony, pectoriloquy, increase in tactile fremitus, or flatness/dullness to percussion at the bases. Abdomen: Soft, non-tender, non-distended. No rebound, guarding, Bailon's sign, or organomegaly. Bowel sounds auscultated in all 4 quadrants. Extremities: No clubbing, cyanosis, or edema. 2+ pedal pulses bilaterally. Skin: No decubitus ulcer, exanthem, or enanthem. Neurology: Alert and oriented in regards to person, place, time, and situation. DTR+ and symmetric. 5/5 motor strength in all 4 extremities, both proximally and distally. No myoclonus, tremors, or tics. Urology: No flood catheter. No urethral discharge. Psychiatry: Appropriate affect. Smiles occasionally. No homicidal/suicidal ideation. Results & Data Results & Data Vital Signs (Past 12 Hours) Vital Signs Temp Pulse Pulse Pulse Resp BP Pulse Ox 06/03/24 09:45 36.6 C 71 74 20 125/77 98 06/03/24 07:54 36.6 C 74 20 125/77 98 06/03/24 06:52 58 L O2 Del Method 06/03/24 09:45 06/03/24 07:54 Room Air 06/03/24 06:52 PG Care Time/CCT Total # of Minutes Spent Total Time Spent with Patient: Total time spent is greater than 50% in coordination of care (as documented) at patient's floor/unit and/or counseling patient: Coding Level of Care Code 71748 SUB INP/OBS CARE 2/35MIN Diagnoses Bradycardia R00.1 hypertension O16.5
--- NOTE | 2024-06-03 18:48 | Discharge Summary ---
Date of Service Day of admission 06/01/24 Day of discharge: June 03, 2024 Admission HPI Per Admitting Provider 28-year-old , presented to emergency department as directed by the OB office earlier today, after she contacted office with symptoms of low heart rate in the 40s to 60s over the past 2 days. Described feeling weak. On evaluation in the emergency department, patient denies headache, vision changes. She feels weak and can feel her heart pumping slowly when she is lying down, however when she gets up and moves around, it feels like her heart rate improves. She denies fever, chills, nausea, vomiting. Is eating and drinking well. Is passing gas and having bowel movements. Her postoperative pain is well-controlled using [id number] medications. She is breast pumping. Small amount of lochia. She delivered by section on 05/27/2024 after presenting for induction of labor, during labor developed face presentation, prompting primary low- transverse section. She had routine recovery, and was discharged home feeling well on 05/30/2024. Her was complicated by obesity and group B strep positive urine sample. The patient is a CF carrier, FOB is negative. She was Rh- status, received RhoGAM. She was normotensive during the . She has no known cardiac problems, however expresses concern that her father this past summer at age 51 of a myocardial infarction. Discharge Data Consultations 06/01/24 15:40 ED Decision to Admit Stat 06/01/24 19:27 Consult Hospitalist Routine Hospital Course (1) Pre-eclampsia, : (2) hypertension: (3) Bradycardia: Plan Patient was admitted to telemetry unit due to bradycardia and hospitalist service consulted. Labs were done and normal. Sinus bradycardia noted. Maternal echo was normal. BP elevated and started on magnesium seizure prophylaxis x 24hrs for suspected onset of hypertnesion/preelampsia. Her pulse spontaneously improved. She did required initiation of anti-hypertensives which she responded to well with titrated dosing. On her hd#3 she was stable for dc home. She was sent prescription for bp med to her pharmacy, had appt made in ob office for friday, and made aware of parameters to call. Coding Level of Care Code None Diagnoses Pre-eclampsia, O14.95 hypertension O16.5 Bradycardia R00.1
[2024-06-03] MEDS ORDERED: ACETAMINOPHEN 325 MG TAB PO PRN (21:52)
== END 2024-06-03 10:34 | disposition home or self-care (01) | DRG 776 ==
LOC: ED 13:28 → 2E 16:03 → SUATTDRO 16:03 → 2E 17:40